=== PATIENT | male | born 1945 | race Caucasian/White ===

== ENCOUNTER 2020-11-02 08:30 | Observation (INO) ==
--- NOTE | 2020-10-28 14:34 | Anesthesiology Consultation ---
Date of Service October 28, 2020 Assessment & Plan (1) Encounter for pre-operative examination: Chart Review Chart Review: Acceptable Risk for Surgery (pending preop Covid testing ) and Patient NOT seen in Pre Admission Testing Pt initially scheduled for surgery 07/20/20- rescheduled to 11/02/20 (presumed secondary to Covid surge) - Check BSG AM DOS At PAT appt on 06/21/20 when seen by Nae LEZAMAC= "Patient advised to continue ASA perioperatively unless otherwise instructed by surgeon/prescriber. Patient made aware that in order for spinal anesthesia, Cilostazol needs to be held 4 days prior to surgery. Patient voiced understanding/will check if okay with prescriber." Per nursing assessment 09[facility]27/2020, [facility] Wears PPE. No known Covid infection in the past 90 days. No known Covid positive contacts or Covid related symptoms. Pt will follow up with surgeon's office re: preop Covid testing= will await results Cardiology office visit 06/24/20: "Did finish cardiac rehab.. Is for left knee replacement on 07/20/2020.. Has history of mildmoderate PAD in both calves.. Gets pain and heaviness in his legs if he walks a few blocks.. Status post CABG- 4V CABG (BECERRA to mid LAD, REUBEN to BECERRA diag 1, REUBEN to end of side OM1, VG to PDA).. Doing very well.. Patient is cleared for proposed surgery.. AFIB- 1 isolated event postop. Not on AC at this time. Continue stepdown on amiodarone. Continue to monitor. PCP office visit: 07/05/20: "Medically stable for left knee arthroplasty." History Surgery Operation Date: 11/02/20 12:05 Proposed Procedures p Left Total Knee Arthroplasty - Jayce Aguilar MD Height/Weight Height: 5 ft 10 in Weight: 113.398 kg Allergies Allergy/AdvReac Type Severity Reaction Status Date / Time No Known Allergies Allergy Verified 09/27/20 08:27 Medications Home Medications Medication Instructions Recorded Confirmed Last Taken Lactobacillus acidophilus 1,000 mmu cells PO QAM 06/09/20 09/27/20 Unknown [Probiotic Acidophilus] amlodipine 5 mg PO QAM 06/09/20 09/27/20 Unknown ascorbic acid (vitamin C) [Vitamin 500 mg PO QAM 06/09/20 09/27/20 Unknown C] aspirin [Aspir-81] 81 mg PO QPM 06/09/20 09/27/20 Unknown atorvastatin 80 mg PO PM 06/09/20 09/27/20 Unknown cholecalciferol (vitamin D3) 125 mcg PO QAM 06/09/20 09/27/20 Unknown [Vitamin D3] cyanocobalamin (vitamin B-12) 1,000 mcg PO QAM 06/09/20 09/27/20 Unknown finasteride 1.25 mg PO QAM 06/09/20 09/27/20 Unknown fluocinolone acetonide oil 5 drp OTB BID 06/09/20 09/27/20 Unknown glucos sul [id number]-C-Mn 1 cap PO QPM 06/09/20 09/27/20 Unknown [Glucosamine Chondroitin] metoprolol succinate 50 - 100 mg PO BID 06/09/20 09/27/20 Unknown multivitamin 1 tab PO QAM 06/09/20 09/27/20 Unknown cilostazol 100 mg PO BID 06/21/20 09/27/20 Unknown Past Medical History Medical History (Updated 10/28/20 @ 15:23 by Jennifer Pearson PA-C) CAD (coronary artery disease) s/p CABG x4 (06/2019) Hyperglycemia Would consider diet controlled DM secondary to Hgb A1C of 6.8 on 10/28/20 preop labs Hyperlipidemia Hypertension Myocardial Infarction 1988 and 1989- follows with current cardiology (Dr. Reyes) Obesity PAD (peripheral artery disease) arterial insufficiency- on Cilostazol, follows with vascular (Dr. Villar/Uri) Past Surgical History Surgical History History of adenoidectomy History of cardiac cath multiple, most recent 2019 (prior to CABG) History of cataract surgery R/L History of colonoscopy multiple History of coronary artery bypass graft CABG x4 (06/2019)- [facility] History of tonsillectomy Social History Smoking Status: Never smoker Do You Dip or Chew Tobacco: No Hx Alcohol Use: Yes Alcohol type: beer alcohol intake frequency: a few times a week Hx Substance Use: No substance use type: does not use Testing Laboratory Results Blood Type A Positive 10/28/20 11:19 Antibody Screen NEGATIVE 10/28/20 11:19 Laboratory Tests 10/28/20 10/28/20 10/28/20 11:19 11:19 11:19 WBC 8.23 Hgb 11.9 L Hct 36.8 L Plt Count 306 PT 9.4 INR 0.9 APTT 23.5 Sodium Potassium Chloride Carbon Dioxide BUN Creatinine Glucose Hemoglobin A1c 6.8 H 10/28/20 11:19 WBC Hgb Hct Plt Count PT INR APTT Sodium 140 Potassium 4.0 Chloride 106 Carbon Dioxide 30 BUN 18 Creatinine 1.30 Glucose 139 H Hemoglobin A1c 10/28/2020 = UA: Trace ketones Electrocardiogram Date: 06/21/20 SR with occasional PVC's at 88bpm. Inferior infarct, age undetermined. (Report forwarded to cardiology) Chest X-Ray Date: 06/21/20 FINDINGS: There are postsurgical changes of a midline sternotomy. There is aortic tortuosity/ectasia. Heart is normal in size. There is no failure. There is no focal pulmonary consolidation. There are no pleural effusions. There is minor left basilar subsegmental atelectasis. IMPRESSION: No active disease in the chest. Echocardiogram Date: 08/25/19 LV Function: normal EF 50 to 55%. Mild LVH. Calcified aortic valve. NITIN is 3.9 cm and mean gradient is 4 mmHg. Grade 1 diastolic dysfunction. Stress Test Date: 04/23/19 Type: nuclear Based upon EKG criteria, this test is negative. Based upon nuclear imaging findings there is lateral wall ischemia, inferior wall infarction, and mild residual ischemia. Subsequent CABGx4 done 06/2019.
--- NOTE | 2020-10-31 21:29 | History & Physical Report ---
Date of Service October 31, 2020 Assessment & Plan (1) Primary osteoarthritis of left knee: Treatment options discussed with patient. He has failed conservative measures. Risks, benefits and alternatives to surgery including but not limited to infection, DVT, pain, stiffness, need for revision surgery, damage to blood vessels, damage to nerves, PE, , were discussed with the patient and they wish to proceed. Plan on left total knee arthroplasty at [facility] on 11/02/[address] Aguilar. Will plan on aspirin 81mg BID x 1 mo post op for DVT prophylaxis. Patient has a baseline normocytic anemia with preop hemoglobin of 11.9. Will need to closely monitor H&H post operatively. Patient has an A1c of 6.8 as well, no previous dx of DM2. Will need to follow up with PCP in regards to his glucose levels. Will plan on outpatient PT post discharge from the hospital. All questions answered. He will follow up post operatively. History of Present Illness Chief Complaint: Left knee pain Primary Care Provider: Ward Sapp 75 year old male with PMHx significant for hx of [place], CAD s/p quadruple bypass, PAD, HTN, high cholesterol who presents with ongoing left knee pain. Pain interfering with his daily activities. He has failed conservative measures including injections and antiinflammatories. He would like to proceed with left knee replacement. Patient denies headaches, sweats, fevers, chills, double vision, blurred vision, cough, sore throat, dysphagia, chest pain, sob, wheezing, n/v/d/c, numbness, tingling, fatigue, urinary symptoms, mood disorders. ROS positive for left knee pain and stiffness. Allergies Allergy/AdvReac Type Severity Reaction Status Date / Time No Known Allergies Allergy Verified 09/27/20 08:27 Home Medications Medication Instructions Recorded Confirmed Type Lactobacillus acidophilus 1,000 mmu cells PO QAM 06/09/20 09/27/20 History [Probiotic Acidophilus] amlodipine 5 mg PO QAM 06/09/20 09/27/20 History ascorbic acid (vitamin C) [Vitamin 500 mg PO QAM 06/09/20 09/27/20 History C] aspirin [Aspir-81] 81 mg PO QPM 06/09/20 09/27/20 History atorvastatin 80 mg PO PM 06/09/20 09/27/20 History cholecalciferol (vitamin D3) 125 mcg PO QAM 06/09/20 09/27/20 History [Vitamin D3] cyanocobalamin (vitamin B-12) 1,000 mcg PO QAM 06/09/20 09/27/20 History finasteride 1.25 mg PO QAM 06/09/20 09/27/20 History fluocinolone acetonide oil 5 drp OTB BID 06/09/20 09/27/20 History glucos sul [id number]-tzqip-C-Mn 1 cap PO QPM 06/09/20 09/27/20 History [Glucosamine Chondroitin] metoprolol succinate 50 - 100 mg PO BID 06/09/20 09/27/20 History multivitamin 1 tab PO QAM 06/09/20 09/27/20 History cilostazol 100 mg PO BID 06/21/20 09/27/20 History Past Med/Surg History Medical History (Updated 10/31/20 @ 21:25 by Albert Herrera) CAD (coronary artery disease) s/p CABG x4 (06/2019) Hyperglycemia Would consider diet controlled DM secondary to Hgb A1C of 6.8 on 10/28/20 preop labs Hyperlipidemia Hypertension Myocardial Infarction 1988 and 1989- follows with current cardiology (Dr. Reyes) Obesity PAD (peripheral artery disease) arterial insufficiency- on Cilostazol, follows with vascular (Dr. Villar/Uri) Surgical History History of adenoidectomy History of cardiac cath multiple, most recent 2018 (prior to CABG) History of cataract surgery R/L History of colonoscopy multiple History of coronary artery bypass graft CABG x4 (06/2019)- [facility] History of tonsillectomy Social History Smoking Status: Never smoker Second Hand Exposure: No; Hx Alcohol Use: Yes Alcohol type: beer Hx Substance Use: No Preferred Language: Slovak Communication Ability: Effective Mail Machine Operator Required: No Beliefs That Will Affect Care: None Current Living Situation: Spouse Feels Safe at Home: Yes Assistive Devices: None Review of Systems All systems reviewed & are unremarkable except as noted in HPI & below Physical Exam Constitutional: well developed and well nourished; no acute distress Eyes: PERRL, conjunctivae normal, anicteric sclerae ENMT: external ear and nose normal, oropharynx normal Neck: trachea midline, no thyromegaly Respiratory: normal respiratory effort, lungs clear to auscultation Cardiovascular: RRR, no murmur, no edema Musculoskeletal: Left Knee: ROM 0-120 with crepitation. Varus alignment. Tenderness medial joint line. Stable to valgus and varus stress. Positive Chayo's/ Skin: no rashes, warm and dry Neurologic: patellar DTR's 2+ bilat, sensation intact Psychiatric: A+Ox3, euthymic affect Results & Data ([facility]) Laboratory Results Lab Results 10/28/20 Range/Units 11:19 Blood Type A Positive Antibody Screen NEGATIVE Diagnostic Findings Left knee: Significant tricompartmental arthritis with periarticular osteophyte formation in all 3 compartments. Lateral subluxation of tibia on femur. Bone on bone medial compartment.
[~2020-11-02 08:30] MED LIST: ACETAMINOPHEN 500 MG TAB PO SCH; BUPIVACAINE 0.25% 30 ML VIAL ONE; BUPIVACAINE 0.5 % 5 MG/1 ML PF 10ML VIAL ONE; CeleBREX 200 MG CAP PO SCH; DEXAMETHASONE SOD INJ 4 MG/ML VIAL ONE; EPINEPHrine INJ 1 MG/ML AMP ONE; FAMOTIDINE 20 MG TAB PO SCH; GABAPENTIN 300 MG CAP PO SCH; LIDOCAINE HCL 2% 2 ML VIAL/AMP(20MG/ML) INFIL ONE; LR 15ML/HR IV SCH; METOCLOPRAMIDE HCL 10 MG TABLET PO SCH; MIDAZOLAM HCL 1 MG/ML 2ML VIAL ONE; ONDANSETRON INJ 2 MG/ML 2 ML VIAL ONE; PROPOFOL IV EMULSION 10 MG/ML 20 ML VIAL IV ONE; ROPIVACAINE 0.5% HCL/PF 150 MG, BUPIVACAINE 0.75% MPF 20 ML, EPINEPHrine 30MG/30ML (OR ... INSTIL SCH; ceFAZolin 2000MG 2,000 MG/15 ML SYR IV SCH; dexAMETHasone 4 MG TAB PO SCH
--- NOTE | 2020-11-02 08:57 | History & Physical Bridge Note ---
Date of Service November 02, 2020 History & Physical Bridge Note I have examined the patient, reviewed the History & Physical and in the interval since the performance of the History & Physical I have noted the following changes of clinical significance: no changes noted
[2020-11-02] MEDS ORDERED: BACITRACIN INJ 50,000 UNIT VIAL ONE (09:23)
[2020-11-02] MEDS ORDERED: ORTHO JOINT ANESTHETIC ONE (09:23)
[2020-11-02] MEDS ORDERED: ATROPINE SULFATE 0.1 MG/ML 10ML SYR IV PRN (10:12)
[2020-11-02] MEDS ORDERED: fentaNYL citrate 100 MCG/2 ML VIAL IV PRN (10:12)
[2020-11-02] MEDS ORDERED: ePHEDrine sulfate 50 MG/ML AMP IV PRN (10:12)
[2020-11-02] MEDS ORDERED: ONDANSETRON INJ 2 MG/ML 2 ML VIAL IV PRN ×2 (10:12→14:13)
[2020-11-02] MEDS ORDERED: PHENYLEPHRINE 100MCG/ML 5ML SYR ONE (10:31)
[2020-11-02] MEDS ORDERED: KETAMINE 50 MG/5 ML SYRINGE ONE (10:34)
[2020-11-02] MEDS ORDERED: GLYCOPYRROLATE 0.2 MG/ML VIAL ONE (10:34)
[2020-11-02] MEDS ORDERED: PROPOFOL IV EMULSION 10 MG/ML 20 ML VIAL IV ONE ×2 (11:23→11:49)
--- NOTE | 2020-11-02 12:26 | Operative Report ---
Post Operative Report Pre & Post Diagnosis Operation Date: 11/02/20 10:40 Pre-Op Diagnosis: Osteoarthritis Left Knee Post-Op Diagnosis: Osteoarthritis Left Knee, synovial cyst lateral knee, synovitis, tricompartmental osteoarthritis chronic ACL tear I identified the patient and participated in the time-out.: Yes Procedure Operation Date: 11/02/20 10:40 Actual Procedures p Left Total Knee Arthroplasty, excision of Synovial Cyst, Partial Synovectomy, superficial wound VAC (Left) - Jayce Aguilar MD Surgeon Jayce Aguilar MD Trawl Net Maker Arnulfo SIMONS Estimated Blood Loss 5 Findings Consistent with Post-Op Diagnosis Specimens Bone cuts Drains 2 Hemovac Anesthesia Type MAC Spinal Regional Complications none Disposition Accompanied Patient To Recovery: No Disposition: Recovery Room Indications 75-year-old male with chronic bilateral knee pain failed conservative management. Left knee hurts more than his right. Radiographs demonstrate tricompartmental osteoarthritis with marked subluxation the femur medially on the tibia with bone loss medial compartment Description of Procedure Patient taken to the operating room the size under spinal MAC regional anesthesia. Patient was placed supine on the operating table. A pneumatic tourniquet was placed about the left upper thigh. The left lower extremity was prepped and draped in sterile fashion. Knee exam demonstrated varus knee large effusion positive Dang exam mild pseudolaxity only lateral collateral ligament laxity 0 through 130 degrees range of motion. History of peripheral vascular disease but good capillary refill and weak but palpable dorsalis pedis pulse. The leg was elevated exsanguinated with an Esmarch bandage and pneumatic tourniquet was raised to 325 millimeters of mercury. Skin incised sharply in longitudinal fashion. Subcutaneous flaps elevated. Incision was made through the medial retinaculum extending up in the mid third of the quadriceps tendon and down to the medial tibial tubercle. Intra-articular findings demonstrated severe tricompartmental osteoarthritis grade 4 all compartments. There was no tch stenosis chronic ACL tear chronic medial meniscus tear. There was a large synovial cyst overlying the popliteus tendon lateral collateral ligament area. There was chronic synovitis throughout the knee joint.. The Egodeus triathlon total knee arthroplasty system was used. To expose the knee the infrapatellar fat pad was resected. The meniscal remnants and cruciate ligaments were resected. The anterior fat pad over the femur in the area of the anterior flange of the femoral component was resected. Lateral synovial bands released. The large synovial cyst over the popliteus tendon lateral, ligament was carefully dissected out with Metzenbaum scissors and resected and any bleeders were cauterized. Partial synovectomy was performed the suprapatellar pouch and areas where there was synovitis that was obscuring our view. The femur was exposed. An intramedullary drill hole was made into the canal. A guide bhanu was placed. Distal femoral cutting guide was adjusted to resect a 5 degree valgus cut with 8 millimeters distal femur resected. The knee was extended and a subperiosteal peel lateral release was performed around the patella. Patella width was measured and width was reproduced using a freehand cut technique and a 39 x 11 symmetrical patella component. The 3 drill holes were made and the excess lateral facet was beveled off to prevent any impingement. Attention was taken back to the femur which was exposed with retractors and the femoral sizing guide was pinned in position. The drill holes were placed in 3 of external rotation to match epicondylar axis. Femur sized for a 7 component. The 4-in-1 cutting block was placed and then the anterior posterior and chamfer cuts are made. The tibia was then subluxed. The external tibial cutting guide was just to make a perpendicular cut to the long axis of the tibia below the most deficient bone loss side. A lamina basketballs and footballs reverser was used and the flexion extension gaps were balanced. This required medial posterior medial releases and pie crusting MCL. All posterior osteophytes removed. All meniscal remnants were resected. The tibia exposed and the trial tibial component size 6 was externally rotated in line with the tibial tubercle and pinned in position. The punch for stem was used. The notch cutting device was centered appropriately and the femoral notch cut was made. The femoral trial was inserted. Trial tibial inserts were placed and size 13 gave balanced ligaments through flexion and extension. Patella tracking was assessed. The patella tracked centrally. The trial components were then removed and the orthomix anesthetic cocktail was injected per protocol. The knee was then copiously irrigated with pulsatile lavage antibiotic solution. Final components were then cemented with Simplex cement. Final components were size 7 left posterior stabilized Joelle triathlon femoral component with pegs, 6 primary tibial baseplate, 6 x 13 mm posterior stabilized polyethylene insert, S 39 x 11 mm patella. After the cement cured the Betadine soak was used per protocol. Then further pulsatile lavage irrigation performed and 2 Hemovac drains were brought out laterally. The quadriceps tendon and medial retinaculum were closed with figure of 8 #1 Vicryl sutures. The knee was taken through full range of motion and the repair was secure. The subcutaneous tissues were closed with 2-0 Vicryl sutures. Skin was closed with mehran. Mustapha and Acticoat superficial wound VAC was applied. Patient procedure well. Arnulfo SIMONS was my physician financial sales assistant who assisted in patient positioning prepping and draping,leg positioning ,soft tissue retraction and instrument management and participated in the closing and application of superficial wound VAC and will participate in postoperative care of the patient. The patient tolerated the procedure well. I attest to the content of the Intraoperative Record and any orders documented therein. Any exceptions are noted below.
--- NOTE | 2020-11-02 13:24 | XRay Report ---
XR knee LT 1 or 2V routine CLINICAL HISTORY: Surgical Post Op COMPARISON: None. DISCUSSION: There are postsurgical changes of a total left knee arthroplasty and patellar resurfacing . There are overlying skin mehran and surgical drains. The femoral tibial components appear well sea olya. There is gas within the soft tissues consistent with recent surgery. IMPRESSION: Postsurgical changes of a total left knee arthroplasty. ACT 112: Negative or not required by law. Electronically signed by: Danny Brown M.D. 11/02/2020 1:23 PM
[2020-11-02] MEDS ORDERED: TAMSULOSIN HCL 0.4 MG CAP PO PRN (14:13)
[2020-11-02] MEDS ORDERED: NALOXONE HCL 0.4 MG/1 ML VIAL/CARP IV PRN (14:13)
[2020-11-02] MEDS ORDERED: oxyCODONE HCL IR 5 MG TAB (IMMEDIATE RELEASE) PO PRN (14:13)
[2020-11-02] MEDS ORDERED: bisacodyL 10 MG SUPP PR PRN (14:13)
[2020-11-02] MEDS ORDERED: FLUOCINOLONE ACETONIDE OIL OTB SCH (14:13)
[2020-11-02] MEDS ORDERED: METOCLOPRAMIDE HCL INJ 5 MG/ML 2 ML VIAL IV PRN (14:13)
[2020-11-02] MEDS ORDERED: HYDROmorphone INJ 0.5 MG/0.5 ML SYR IV PRN (14:13)
[2020-11-02] MEDS ORDERED: MAGNESIUM HYDROXIDE SUSP 30 ML UDC PO PRN (14:13)
--- NOTE | 2020-11-02 14:58 | Hospitalist Consultation ---
Date of Consultation November 02, 2020 Assessment & Plan (1) Primary osteoarthritis of left knee: Patient underwent total knee arthroplasty on 11/02/[address] Osborne (2) CAD (coronary artery disease): Patient has history of CABG in 2019 with previous depressed ejection fraction of 45 to 50% considering his chronic systolic heart failure. Patient did receive cardiac clearance for surgery remaining on his medications. (3) PAD (peripheral artery disease): Patient is known to have bilateral lower extremity claudication and a previous note by cardiology. He was on Pletal aspirin atorvastatin as risk ellie fying agents. The Pletal was held 4 days preoperatively will resume Pletal postoperatively once hemostasis is achieved (4) Obesity: Patient suffers from morbid obesity with a BMI of 49.4 likely contributing to his osteoarthritis and also cardiovascular risk (5) Hyperlipidemia: Remains on high-dose atorvastatin 80 mg a day to affect both his coronary disease and peripheral artery disease. (6) Hyperglycemia: Patient does not have a history of diabetes however it is preoperative A1c was 6.8 we will follow his glucoses cautiously in the hospital and employ sliding scale insulin for glucoses above 200 (7) DVT prophylaxis: Discussing with Ortho physicians showroom sales assistant decision to have aspirin twice daily plus Pletal twice daily for DVT prevention History of Present Illness Attending Physician: Jayce Aguilar MD History of Present Illness Patient is a 75-year-old male underwent left total knee arthroplasty by Dr. Menendez on 11/02/2020. Patient has a history of coronary artery disease status post CABG in 2019 and peripheral artery disease typically on dual antiplatelet therapy agents for lower extremity claudication. Patient was seen by his bike assembler and family physician and cleared for surgery. Directions were to hold his Pletal 4 days preoperatively but continue on his aspirin. Patient remains on metoprolol succinate 100 the morning and 50 mg at night for cardiovascular risk reduction as well as high-dose atorvastatin 80 mg. Allergies Allergy/AdvReac Type Severity Reaction Status Date / Time No Known Allergies Allergy Verified 11/02/20 09:01 Home Medications Medication Instructions Recorded Confirmed Type Lactobacillus acidophilus 1,000 mmu cells PO QAM 06/09/20 11/02/20 History [Probiotic Acidophilus] amlodipine 5 mg PO QAM 06/09/20 11/02/20 History ascorbic acid (vitamin C) [Vitamin 500 mg PO QAM 06/09/20 11/02/20 History C] aspirin [Aspir-81] 81 mg PO QPM 06/09/20 11/02/20 History atorvastatin 80 mg PO PM 06/09/20 11/02/20 History cholecalciferol (vitamin D3) 125 mcg PO QAM 06/09/20 11/02/20 History [Vitamin D3] cyanocobalamin (vitamin B-12) 1,000 mcg PO QAM 06/09/20 09/27/20 History finasteride 1.25 mg PO QAM 06/09/20 11/02/20 History fluocinolone acetonide oil 5 drp OTB 2XWK 06/09/20 11/02/20 History glucos sul 5NYg-csp-ztiff-C-Mn 1 cap PO QPM 06/09/20 11/02/20 History [Glucosamine Chondroitin] metoprolol succinate 50 - 100 mg PO BID 06/09/20 11/02/20 History multivitamin 1 tab PO QAM 06/09/20 11/02/20 History cilostazol 100 mg PO BID 06/21/20 11/02/20 History Patient History Medical History (Updated 11/02/20 @ 14:58 by Perez Michel MD) CAD (coronary artery disease) s/p CABG x4 (06/2019) Hyperglycemia Would consider diet controlled DM secondary to Hgb A1C of 6.8 on 10/28/20 preop labs Hyperlipidemia Hypertension Myocardial Infarction 1988 and 1989- follows with current cardiology (Dr. Reyes) Obesity PAD (peripheral artery disease) arterial insufficiency- on Cilostazol, follows with vascular (Dr. Villar/Uri) Surgical History History of adenoidectomy History of cardiac cath multiple, most recent 2019 (prior to CABG) History of cataract surgery R/L History of colonoscopy multiple History of coronary artery bypass graft CABG x4 (06/2019)- [facility] History of tonsillectomy Social History Smoking Status: Never smoker Second Hand Exposure: No; Do You Dip or Chew Tobacco: No; Tobacco Cessation Education Requested by Patient: No Hx Alcohol Use: Yes Alcohol type: beer Hx Substance Use: No Preferred Language: Icelandic Communication Ability: Effective Corporate Associate Required: No Beliefs That Will Affect Care: None Current Living Situation: Spouse Other Information That Helps Us Care for You: No Feels Safe at Home: Yes Safety Concerns: Feels Safe At This Time Assistive Devices: Walker Review of Systems Review of Systems: Mild distress and fatigue no headache, blurry or double vision no speech or swallowing issues no chest pain, pressure or palpitations no shortness of breath, cough or wheezes no abdominal pain, nausea or vomiting, diarrhea or constipation no dysuria, hematuria or frequency bilateral knee pain left greater than right no back pain, CVA tenderness or radicular pain no bruising, bleeding or rashes no focal signs of weakness or numbness or altered sensation no complaints of anxiety or depression.. Physical Exam Physical Exam: The patient appeared well nourished and normally developed. Vital signs as documented. Head exam is normocephalic atraumatic no scleral icterus Neck is without JVD, thyromegaly, or carotid bruits. Lungs are clear to auscultation, no focal loss of breath sounds Cardiac exam, Rhythm is regular.. No murmurs, rubs or gallops. Abdominal exam reveals normal bowel sounds, soft non tender, no masses Extremities are nonedematous and both pedal pulses are present pt has good pain control at this time Neurologic exam is alert and oriented, no focal loss of strength or sensation Psychologically is without concerns for anxiety or depression Results & Data Results & Data ([facility]) Vital Signs (Past 12 Hours) Vital Signs Temp Pulse Pulse Pulse Resp BP Pulse Ox 11/02/20 14:33 97.9 F 76 16 119/71 95 11/02/20 14:00 97.7 F 77 18 126/75 98 11/02/20 13:40 97.5 F L 77 15 124/73 97 11/02/20 13:30 97.2 F L 77 15 117/76 97 11/02/20 13:20 81 16 122/67 96 11/02/20 13:10 76 15 117/73 96 11/02/20 13:01 97.3 F L 81 13 112/80 95 11/02/20 09:50 98.2 F 77 20 126/83 96 11/02/20 09:15 98.2 F 85 20 126/84 94 PG Care Time/CCT Total # of Minutes Spent Total Time Spent with Patient: Total time spent is greater than 50% in coordination of care (as documented) at patient's floor/unit and/or counseling patient: Coding Level of Care Code 02055 Inpt Consult Level 3 Diagnoses Primary osteoarthritis of left knee M17.12 CAD (coronary artery disease) I25.10 PAD (peripheral artery disease) I73.9 Obesity E66.9 Hyperlipidemia E78.5 Hyperglycemia R73.9 DVT prophylaxis Z29.9
[2020-11-02] MEDS ORDERED: GLUCOSE 10 TABS/TUBE PO PRN (15:00)
[2020-11-02] MEDS ORDERED: CARBOHYDRATES FOR HYPOGLYCEMIA PO PRN (15:00)
[2020-11-02] MEDS ORDERED: GLUCOSE 40% GEL 15 GM TUBE PO PRN (15:00)
[2020-11-02] MEDS ORDERED: GLUCAGON FOR INJ 1 MG VIAL SQ PRN (15:00)
[2020-11-02] MEDS ORDERED: DEXTROSE 50% 50 ML SYRINGE IV PRN (15:00)
--- NOTE | 2020-11-02 15:04 | Anesthesiology Progress Note ---
Date of Service November 02, 2020 Anesthesia Post Procedure Vital Signs Vital Signs: Temp Pulse Pulse Pulse Resp BP Pulse Ox 11/02/20 14:33 36.6 C 76 16 119/71 95 11/02/20 14:00 36.5 C 77 18 126/75 98 11/02/20 13:40 36.4 C L 77 15 124/73 97 11/02/20 13:30 36.2 C L 77 15 117/76 97 11/02/20 13:20 81 16 122/67 96 11/02/20 13:10 76 15 117/73 96 11/02/20 13:01 36.3 C L 81 13 112/80 95 11/02/20 09:50 36.8 C 77 20 126/83 96 11/02/20 09:15 36.8 C 85 20 126/84 94 Transfer of Care Handoff Completed per policy Notes Mental Status: alert / awake / arousable Patient Amnestic to Procedure: Yes Nausea / Vomiting: adequately controlled Pain: adequately controlled Airway Patency, RR, SpO2: stable & adequate BP & HR: stable & adequate Hydration State: stable & adequate Neuraxial Anesthesia: was administered and sensory block is resolving Anesthetic Complications: no major complications apparent
[2020-11-02] MEDS: SODIUM CHLORIDE 0.9% 1000ML 1,000 ML IV SCH (15:35)
[2020-11-02] MEDS: ACETAMINOPHEN 500 MG TAB PO SCH ×2 (15:35→22:20)
[2020-11-02] MEDS: FERROUS GLUCONATE 324 MG TAB PO SCH (17:05)
[2020-11-02] MEDS: INSULIN ASPART 100 UNITS/ML 3 ML PEN SC SCH ×2 (17:23→21:09)
[2020-11-02] MEDS: METOPROLOL SUCC 50MG EXT REL TAB PO SCH (20:28)
[2020-11-02] MEDS: ASPIRIN 81 MG ECTAB PO SCH (20:28)
[2020-11-02] MEDS: ceFAZolin 2000MG 2,000 MG/15 ML SYR IV SCH (20:28)
[2020-11-02] MEDS: SENNA 8.6 MG TAB PO SCH (20:28)
[2020-11-02] MEDS: ATORVASTATIN 40 MG TAB PO SCH (20:29)
[2020-11-02] MEDS: DOCUSATE SODIUM 100 MG CAP PO SCH (20:29)
[2020-11-02] MEDS ORDERED: ASPIRIN 81 MG ECTAB PO SCH (21:00)
[2020-11-02] MEDS ORDERED: METOPROLOL SUCC 50MG EXT REL TAB PO SCH ×2 (21:00)
[2020-11-03] MEDS: SODIUM CHLORIDE 0.9% 1000ML 1,000 ML IV SCH (02:13)
[2020-11-03] MEDS: ceFAZolin 2000MG 2,000 MG/15 ML SYR IV SCH (04:06)
[2020-11-03] MEDS: ACETAMINOPHEN 500 MG TAB PO SCH ×3 (06:10→22:06)
[2020-11-03 07:35] LABS: Hematocrit (blood only) 34.9 % (42-52); Hemoglobin 11.3 g/dL (14.0-18.0); Mean Corpuscular Hgb Conc 32.4 g/dL (32-36); Mean Corpuscular Volume 92.6 fL (80-100); Mean Platelet Volume 8.5 fL (7.4-10.4); Platelet Count 315 K/uL (130-400); RDW Coefficient of Variation 14.3 % (11.5-14.5); RDW Standard Deviation 48.2 fL (36.4-46.3); Red Blood Count 3.77 M/uL (4.7-6.1); White Blood Count 14.53 K/uL (4.8-10.8)
[2020-11-03 08:07] LABS: BUN Creatinine Ratio 19.2 (10-20); Calcium 8.8 mg/dl (8.5-10.1); Est GFR (African American) 61.2; Est GFR (Non-African American) 52.8; Potassium 4.4 mmol/L (3.5-5.1)
[2020-11-03] MEDS: INSULIN ASPART 100 UNITS/ML 3 ML PEN SC SCH ×4 (08:17→20:45)
--- NOTE | 2020-11-03 08:45 | Anesthesiology Progress Note ---
Date of Service November 03, 2020 Anesthesia Post Procedure Vital Signs Vital Signs: Temp Pulse Pulse Pulse Resp BP BP 11/03/20 07:30 36.5 C 71 16 90/63 L 11/03/20 02:01 36.4 C L 69 16 116/75 11/02/20 22:23 36.4 C L 72 18 112/66 11/02/20 20:00 70 122/81 11/02/20 19:12 36.4 C L 68 16 111/69 11/02/20 17:04 36.6 C 76 16 108/70 11/02/20 16:07 36.4 C L 77 16 125/80 11/02/20 15:37 11/02/20 15:23 36.3 C L 78 16 113/67 11/02/20 14:33 36.6 C 76 16 119/71 11/02/20 14:00 36.5 C 77 18 126/75 11/02/20 13:40 36.4 C L 77 15 124/73 11/02/20 13:30 36.2 C L 77 15 117/76 11/02/20 13:20 81 16 122/67 11/02/20 13:10 76 15 117/73 11/02/20 13:01 36.3 C L 81 13 112/80 11/02/20 09:50 36.8 C 77 20 126/83 11/02/20 09:15 36.8 C 85 20 126/84 Pulse Ox 11/03/20 07:30 93 11/03/20 02:01 91 11/02/20 22:23 94 11/02/20 20:00 11/02/20 19:12 92 11/02/20 17:04 90 11/02/20 16:07 91 11/02/20 15:37 93 11/02/20 15:23 94 11/02/20 14:33 95 11/02/20 14:00 98 11/02/20 13:40 97 11/02/20 13:30 97 11/02/20 13:20 96 11/02/20 13:10 96 11/02/20 13:01 95 11/02/20 09:50 96 11/02/20 09:15 94 Notes Mental Status: alert / awake / arousable and participated in evaluation Patient Amnestic to Procedure: Yes Nausea / Vomiting: adequately controlled Pain: adequately controlled Airway Patency, RR, SpO2: stable & adequate BP & HR: stable & adequate Hydration State: stable & adequate Neuraxial Anesthesia: was administered and sensory block resolved Anesthetic Complications: no major complications apparent
--- NOTE | 2020-11-03 08:48 | Hospitalist Progress Note ---
Date of Service November 03, 2020 Assessment & Plan (1) Primary osteoarthritis of left knee: * POD#1 s/p Left Total Knee Arthroplasty, Incision of Synovial Cyst, Partial Synovectomy with Dr. Aguilar. EBL 5cc. * PT/OT/pain management/bowel regimen/DVT prophylaxis per primary service * Pre-op h/h 11.9/36.8 * H/h 11.3/34.9 -- drop from surgery but unclear why underlying anemia. MCV wnl. * --> Will add iron labs/B12/folate if patient staying today. --> per patient, he is unaware of chronic anemia and has never been on iron supplementation. He does take B12 daily but do not have access to latest lab levels. * --> He reports colonoscopy 2 years ago which was clear and he is not to have repeat for 8 more years * WBC elevated but did get 8mg PO dexamethasone operative period * BP low this morning but was asymptomatic -- held AM amlodipine and BP stable 114/67 * Labs in AM (2) CAD (coronary artery disease): * Patient has history of CABG in 2019 at [facility]. Also with HTN, also well controlled * Symptoms of cp/sob resolved since that time * ECHO did show EF 45-50% but did get cardic clearance for current surgery * He states since that time BPs have always been well controlled * Continue metoprolol 50+100mg as ordered, ASA 81mg (increased to BID for DVT proph), Lipitor 80mg. Not on TRACY/ARB * Holding amlodipine this AM for low BP, improved currently -- expect to resume in AM (3) PAD (peripheral artery disease): * Patient is known to have bilateral lower extremity claudication and a previous note by cardiology. * He was on Pletal aspirin atorvastatin as risk modifying agents. * The Pletal was held 4 days preoperatively and resumed BID for DVT proph along with ASA 81mg BID (4) Hyperlipidemia: * continued atorvastatin 80 mg daily (5) Obesity: * Patient suffers from morbid obesity with a BMI of 49.4 likely contributing to his osteoarthritis and also cardiovascular risk * Weight loss/diet exercise encouraged (6) Hyperglycemia: * Hx diabetes but not on medications currently * Pre-op A1c 6.8 * ISS while inpatient as received dexamethasone operatively * BSGs acceptable (7) CKD (chronic kidney disease) stage 3, GFR 30-59 ml/min: * Unclear baseline as PCP not [facility], however since Jun 2020 Cr 1.37, pre-op 1.3 and currently 1.32 assuming around baseline * Not on TRACY/ARB * Continued vitamin D supplementation * Would recommend follow up with PCP * BMP in AM (8) BPH (benign prostatic hyperplasia): * Finasteride 1.25mg ASS[employer]MENT DESK [employer]OR -- will attempt to order but appears non- formulary * If unable to get will ask pt to have brought in * Low UO but patient now drinking/eating more --> continue to monitor * No vasquez (9) DVT prophylaxis: * ASA BID, Pletal BID Thank you for allowing hospitalist service to participate in the care of Mr Whittington. Hospitalist service will follow along. Admission and Anticipated Discharge Date Admission Date: November 02, 2020 Supervising Physician Co-Signing Physician Notes KRISTYN Supervision Note: I did not personally see or examine the patient today, but I verified all todd points of KRISTYN Durant's assessment and plan with the following exceptions/additions: None Subjective Patient evaluated this morning. Doing great. Plans on staying overnight to monitor drain output and to have OPPT at d/c. Pain well controlled. No chest pain or shortness of breath -- he states all these symptoms resolved when he had his CABG Jun 2019 at [facility]. Eating/drinking without issue and passing gas. 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 No fever, chills, chest pain, shortness of breath, abdominal pain, n/v. Review of Systems Review of Systems: All systems reviewed & are unremarkable except as noted in HPI & below Physical Exam Constitutional: WD/WN, vitals as above well groomed, cooperative and comfortable; no acute distress Eyes: + anicteric sclerae and PERRL ENMT: Ears: no hearing impairment Neck: normal visual inspection and trachea midline Respiratory: normal respiratory effort, lungs clear to auscultation Cardiovascular: RRR, no murmur, no edema (prior sternotomy scar noted) Gastrointestinal (Abdomen): normal bowel sounds, soft, nontender, no hepatosplenomegaly Musculoskeletal: left knee with tracy wrap, dressing c/d/i PRevena with green light, functioning Hemovac with ~100cc bloody output NVI DP, PT pulses palpable and equal bilaterally strength 5/5 with plantar and dorsiflexion calves nontender Skin: cool, dry Neurologic: PERRL, EOMI, accommodation nl, no face palsy, no dysarthria Psychiatric: A+Ox3, euthymic affect Genitourinary: NO VASQUEZ Lymphatic: no cervical or axillary lymphadenopathy Results & Data Results & Data ([facility]) Vital Signs (Past 12 Hours) Vital Signs Temp Pulse Resp BP Pulse Ox 11/03/20 07:30 36.5 C 71 16 90/63 L 93 11/03/20 02:01 36.4 C L 69 16 116/75 91 11/02/20 22:23 36.4 C L 72 18 112/66 94 Laboratory Results 11/03/20 11/03/20 11/03/20 Range/Units 07:54 06:44 06:44 WBC 14.53 H (4.8-10.8) K/uL RBC 3.77 L (4.7-6.1) M/uL Hgb 11.3 L (14.0-18.0) g/dL Hct 34.9 L (42-52) % MCV 92.6 (80-100) fL MCH 30.0 (25-34) pg MCHC 32.4 (32-36) g/dL RDW Std Deviation 48.2 H (36.4-46.3) fL RDW Coeff of Alexi 14.3 (11.5-14.5) % Plt Count 315 (130-400) K/uL MPV 8.5 (7.4-10.4) fL Sodium 140 (136-145) mmol/L Potassium 4.4 (3.5-5.1) mmol/L Chloride 109 H (98-107) mmol/L Carbon Dioxide 25 (21-32) mmol/L Anion Gap 6.0 (3-11) BUN 25 H (7-18) mg/dl Creatinine 1.32 (0.6-1.4) mg/dl Est Cr Clr Drug Dosing 65.0 ml/min Est GFR ( Amer) 61.2 Est GFR (Non-Af Amer) 52.8 BUN/Creatinine Ratio 19.2 (10-20) Glucose 151 H (70-99) mg/dl POC Glucose 148 H (70-99) mg/dl Calcium 8.8 (8.5-10.1) mg/dl 11/02/20 11/02/20 11/02/20 Range/Units 20:46 17:21 08:54 WBC (4.8-10.8) K/uL RBC (4.7-6.1) M/uL Hgb (14.0-18.0) g/dL Hct (42-52) % MCV (80-100) fL MCH (25-34) pg MCHC (32-36) g/dL RDW Std Deviation (36.4-46.3) fL RDW Coeff of Alexi (11.5-14.5) % Plt Count (130-400) K/uL MPV (7.4-10.4) fL Sodium (136-145) mmol/L Potassium (3.5-5.1) mmol/L Chloride (98-107) mmol/L Carbon Dioxide (21-32) mmol/L Anion Gap (3-11) BUN (7-18) mg/dl Creatinine (0.6-1.4) mg/dl Est Cr Clr Drug Dosing ml/min Est GFR ( Amer) Est GFR (Non-Af Amer) BUN/Creatinine Ratio (10-20) Glucose (70-99) mg/dl POC Glucose 168 H 207 H 108 H (70-99) mg/dl Calcium (8.5-10.1) mg/dl PG Care Time/CCT Total # of Minutes Spent Total Time Spent with Patient: Total time spent is greater than 50% in coordination of care (as documented) at patient's floor/unit and/or counseling patient: Coding Level of Care Code 17836 Subseq Obs Care Lvl 3 Diagnoses Primary osteoarthritis of left knee M17.12 CAD (coronary artery disease) I25.10 PAD (peripheral artery disease) I73.9 Hyperlipidemia E78.5 Obesity E66.9 Hyperglycemia R73.9 CKD (chronic kidney disease) stage 3, GFR 30-59 ml/min N18.30 BPH (benign prostatic hyperplasia) N40.0 DVT prophylaxis Z29.9
[2020-11-03] MEDS ORDERED: NON-FORMULARY MEDICATION (Finasteride 1 mg Tablet) PO SCH (09:00)
[2020-11-03] MEDS ORDERED: amLODIPine BESYLATE 5 MG TAB PO SCH (09:00)
[2020-11-03] MEDS ORDERED: MULTIVITAMIN TAB PO SCH (09:00)
[2020-11-03] MEDS: cilostazoL 100 MG TAB PO SCH ×2 (09:43→22:05)
[2020-11-03] MEDS: ASCORBIC ACID 500 MG TAB PO SCH (09:43)
[2020-11-03] MEDS: CYANOCOBALAMIN 500 MCG TABLET (VITAMIN B-12) PO SCH (09:43)
[2020-11-03] MEDS: ASPIRIN 81 MG ECTAB PO SCH ×2 (09:43→22:02)
[2020-11-03] MEDS: ADVANCED PROBIOTIC 1250 MG CAPSULE PO SCH (09:43)
[2020-11-03] MEDS: DOCUSATE SODIUM 100 MG CAP PO SCH ×2 (09:43→22:01)
[2020-11-03] MEDS: MULTIVITAMIN TAB PO SCH (09:43)
[2020-11-03] MEDS: FERROUS GLUCONATE 324 MG TAB PO SCH ×2 (09:43→17:55)
--- NOTE | 2020-11-03 09:43 | Orthopedic Progress Note ---
Date of Service November 03, 2020 Assessment & Plan (1) Primary osteoarthritis of left knee: Postop day 1 status post left total knee arthroplasty. PT/OT protocols. Weightbearing as tolerated. DVT prophylaxis-aspirin p.o. twice daily, Pletal p.o. twice daily, SCDs, CASIMIRO lion Pain management as written. DC planning-plan for outpatient PT upon discharge. Admission and Anticipated Discharge Date Admission Date: November 02, 2020 Supervising Physician Co-Signing Physician Notes Patient seen and examined. He is doing extremely well. He has been ambulating several times in the hallway already. Pain is well controlled. Encouraged knee range of motion and ambulation. Plan upon discharge is home with outpatient physical therapy. Subjective Postop day 1 Patient sitting up at the bedside eating his breakfast. Pain control is adequate today. He denies shortness of breath, chest pain, lightheadedness. Physical Exam Physical Exam: Dressings are clean, dry, and intact. Calves are soft nontender. Neurovascular is intact. Toes are mobile. He has good dorsiflexion and plantarflexion of the left foot. Hemovac drainage was 200 mL from the previous shift. Results & Data ([facility]) Vital Signs (Past 12 Hours) Vital Signs Temp Pulse Resp BP Pulse Ox 11/03/20 07:30 36.5 C 71 16 90/63 L 93 11/03/20 02:01 36.4 C L 69 16 116/75 91 11/02/20 22:23 36.4 C L 72 18 112/66 94 Laboratory Results Laboratory Results WBC 14.53 K/uL (4.8-10.8) H 11/03/20 06:44 RBC 3.77 M/uL (4.7-6.1) L 11/03/20 06:44 Hgb 11.3 g/dL (14.0-18.0) L 11/03/20 06:44 Hct 34.9 % (42-52) L 11/03/20 06:44 MCV 92.6 fL (80-100) 11/03/20 06:44 MCH 30.0 pg (25-34) 11/03/20 06:44 MCHC 32.4 g/dL (32-36) 11/03/20 06:44 RDW Std Deviation 48.2 fL (36.4-46.3) H 11/03/20 06:44 RDW Coeff of Alexi 14.3 % (11.5-14.5) 11/03/20 06:44 Plt Count 315 K/uL (130-400) 11/03/20 06:44 MPV 8.5 fL (7.4-10.4) 11/03/20 06:44 Sodium 140 mmol/L (136-145) 11/03/20 06:44 Potassium 4.4 mmol/L (3.5-5.1) 11/03/20 06:44 Chloride 109 mmol/L (98-107) H 11/03/20 06:44 Carbon Dioxide 25 mmol/L (21-32) 11/03/20 06:44 Anion Gap 6.0 (3-11) 11/03/20 06:44 BUN 25 mg/dl (7-18) H 11/03/20 06:44 Creatinine 1.32 mg/dl (0.6-1.4) 11/03/20 06:44 Est Cr Clr Drug Dosing 65.0 ml/min 11/03/20 06:44 Est GFR ( Amer) 61.2 11/03/20 06:44 Est GFR (Non-Af Amer) 52.8 11/03/20 06:44 BUN/Creatinine Ratio 19.2 (10-20) 11/03/20 06:44 Glucose 151 mg/dl (70-99) H 11/03/20 06:44 POC Glucose 148 mg/dl (70-99) H 11/03/20 07:54 Calcium 8.8 mg/dl (8.5-10.1) 11/03/20 06:44 Blood Type A Positive 10/28/20 11:19 Antibody Screen NEGATIVE 10/28/20 11:19
[2020-11-03] MEDS: CHOLECALCIFEROL 1,000 UNITS 25 MCG TAB PO SCH (09:44)
[2020-11-03] MEDS: METOPROLOL SUCC 50MG EXT REL TAB PO SCH ×2 (09:44→22:06)
[2020-11-03] MEDS: FINASTERIDE 5 MG TAB PO SCH (15:08)
[2020-11-03] MEDS: ATORVASTATIN 40 MG TAB PO SCH (22:02)
[2020-11-03] MEDS: SENNA 8.6 MG TAB PO SCH (22:06)
[2020-11-04] MEDS: ACETAMINOPHEN 500 MG TAB PO SCH (06:15)
[2020-11-04 06:18] LABS: Hemoglobin 9.2 g/dL (14.0-18.0); Mean Corpuscular Hemoglobin 30.1 pg (25-34); Mean Corpuscular Hgb Conc 32.9 g/dL (32-36); Mean Corpuscular Volume 91.5 fL (80-100); Mean Platelet Volume 8.1 fL (7.4-10.4); Platelet Count 272 K/uL (130-400); RDW Coefficient of Variation 14.8 % (11.5-14.5); RDW Standard Deviation 49.3 fL (36.4-46.3); Red Blood Count 3.06 M/uL (4.7-6.1); White Blood Count 10.03 K/uL (4.8-10.8)
[2020-11-04 06:46] LABS: BUN Creatinine Ratio 29.8 (10-20); Calcium 8.2 mg/dl (8.5-10.1); Creatinine Clr Calc Pharmacy 64.1 ml/min; Est GFR (African American) 60.1; Est GFR (Non-African American) 51.8; Potassium 4.2 mmol/L (3.5-5.1)
[2020-11-04 06:51] LABS: Ferritin 24.6 ng/ml (8-388)
--- NOTE | 2020-11-04 07:06 | Orthopedic Progress Note ---
Date of Service November 04, 2020 Assessment & Plan (1) Primary osteoarthritis of left knee: Postop day 2 status post left total knee arthroplasty. PT/OT protocols. Weightbearing as tolerated. DVT prophylaxis-aspirin p.o. twice daily, Pletal p.o. twice daily, SCDs, CASIMIRO lion Pain management as written. AM labs-Hgb drop to 9.2 this am, acute blood loss anemia due to surgical loss and dilutional effect. Anemia workup by medicine service pending due to normocytic anemia preop. DC planning-plan for outpatient PT upon discharge. Plan on d/c home today if okay with medicine team Admission and Anticipated Discharge Date Admission Date: November 02, 2020 Subjective POD#2 left TKA. Pain well controlled. Anemic but is asymptomatic. Hgb drop to 9.2 this AM. No chest pain, sob, headache, dizziness, fever, chills. Review of Systems Constitutional: as per Subjective / HPI Physical Exam Physical Exam: Left knee OMKAR intact, suctioning. Drain site c/d/i. No calf tenderness. Good dorsiflexion. Distally n/v status and sensation are intact. Constitutional: well developed and well nourished; no acute distress Results & Data ([facility]) Vital Signs (Past 12 Hours) Vital Signs Temp Pulse Resp BP BP Pulse Ox 11/04/20 05:58 36.4 C L 76 18 124/75 94 11/03/20 22:50 36.7 C 83 18 118/71 95 11/03/20 22:00 85 123/73
--- NOTE | 2020-11-04 08:28 | Hospitalist Progress Note ---
Date of Service November 04, 2020 Assessment & Plan (1) Primary osteoarthritis of left knee: POD#2 s/p Left Total Knee Arthroplasty, Incision of Synovial Cyst, Partial Synovectomy with Dr. Aguilar. EBL 5cc. * PT/OT/pain management/bowel regimen/DVT prophylaxis per primary service * Pre-op h/h 11.9/36.8 * H/h 9.2/28 -- drop from surgery from blood loss on ASA BID, Pletal BID for DVT proph * Will given 500cc 1/2NS for some dehydration * Iron studies with low normal ferritin 24.6, and low iron at 29. TIBC and transferrin wnl. Trans % sat at 10 --> starting on iron supplementation ( --> per patient, he is unaware of chronic anemia and has never been on iron supplementation. --> He reports colonoscopy 2 years ago which was clear and he is not to have repeat for 8 more years) * --> Will start on daily iron supplementation and recommend patient have EGD if not already done as an outpatient --> To f/u with PCP about EGD in future -- discussed oral supplementation and continued with f/u PCP B12/Folate normal (2) CAD (coronary artery disease): * Patient has history of CABG in 2019 at [facility]. Also with HTN, also well controlled * Symptoms of cp/sob resolved since that time * ECHO did show EF 45-50% but did get cardic clearance for current surgery * He states since that time BPs have always been well controlled * Continue metoprolol 50+100mg as ordered, ASA 81mg (increased to BID for DVT proph), Lipitor 80mg. Not on TRACY/ARB * Held amlodipine for low BP but BPs better today and was resumed (3) PAD (peripheral artery disease): * Patient is known to have bilateral lower extremity claudication and a previous note by cardiology. * He was on Pletal aspirin atorvastatin as risk modifying agents. * The Pletal was held 4 days preoperatively and resumed BID for DVT proph along with ASA 81mg BID (4) Hyperlipidemia: * continued atorvastatin 80 mg daily (5) Obesity: * Patient suffers from morbid obesity with a BMI of 49.4 likely contributing to his osteoarthritis and also cardiovascular risk * Weight loss/diet exercise encouraged (6) Hyperglycemia: * Hx diabetes but not on medications currently * Pre-op A1c 6.8 * ISS while inpatient as received dexamethasone operatively * BSGs acceptable (7) CKD (chronic kidney disease) stage 3, GFR 30-59 ml/min: * Unclear baseline as PCP not [facility], however since Jun 2020 Cr 1.37, pre-op 1.3 and currently 1.32 assuming around baseline * Not on TRACY/ARB * Continued vitamin D supplementation * Would recommend follow up with PCP Cr 1.34 and stable (8) BPH (benign prostatic hyperplasia): * Finasteride 1.25mg [employer] - continued * VIT, unmeasured. No vasquez (9) DVT prophylaxis: * ASA BID, Pletal BID Thank you for allowing hospitalist service to participate in the care of Mr Whittington. Hospitalist service will sign off at this time Admission and Anticipated Discharge Date Admission Date: November 02, 2020 Supervising Physician Co-Signing Physician Notes PA Supervision Note: I did not personally see or examine the patient today, but I verified all todd points of KRISTYN Durant's assessment and plan with the following exceptions/additions: None Subjective Seen this morning. Doing well. Plans on d/c this afternoon. Got dose of IV Venofer and discussed low iron on labs and sent rx for supplementation. Never had EGD and discussed would be ideal for further eval -- he is to speak with his PCP at follow up. B12/folate pending. Plans for OPPT. No chest pain, shortness of breath, abdominal pain, nausea or vomiting. Passing gas but no BM -- anxious to get home to use his own bathroom. Review of Systems Review of Systems: All systems reviewed & are unremarkable except as noted in HPI & below Physical Exam Constitutional: WD/WN, vitals as above well groomed, cooperative and comfortable; no acute distress Eyes: + anicteric sclerae and PERRL ENMT: Ears: no hearing impairment Neck: normal visual inspection and trachea midline Respiratory: normal respiratory effort, lungs clear to auscultation Cardiovascular: RRR, no murmur, no edema (prior sternotomy scar noted) Gastrointestinal (Abdomen): normal bowel sounds, soft, nontender, no hepatosplenomegaly Musculoskeletal: left knee dressing c/d/i NVI DP, PT pulses palpable and equal bilaterally strength 5/5 with plantar and dorsiflexion calves nontender Skin: cool, dry Neurologic: PERRL, EOMI, accommodation nl, no face palsy, no dysarthria Psychiatric: A+Ox3, euthymic affect Genitourinary: NO VASQUEZ Lymphatic: no cervical or axillary lymphadenopathy Results & Data Results & Data ([facility]) Vital Signs (Past 12 Hours) Vital Signs Temp Pulse Resp BP BP Pulse Ox 11/04/20 05:58 36.4 C L 76 18 124/75 94 11/03/20 22:50 36.7 C 83 18 118/71 95 11/03/20 22:00 85 123/73 Laboratory Results 11/04/20 11/04/20 11/04/20 Range/Units 06:00 05:42 05:42 WBC 10.03 (4.8-10.8) K/uL RBC 3.06 L (4.7-6.1) M/uL Hgb 9.2 L (14.0-18.0) g/dL Hct 28.0 L (42-52) % MCV 91.5 (80-100) fL MCH 30.1 (25-34) pg MCHC 32.9 (32-36) g/dL RDW Std Deviation 49.3 H (36.4-46.3) fL RDW Coeff of Alexi 14.8 H (11.5-14.5) % Plt Count 272 (130-400) K/uL MPV 8.1 (7.4-10.4) fL Sodium (136-145) mmol/L Potassium (3.5-5.1) mmol/L Chloride (98-107) mmol/L Carbon Dioxide (21-32) mmol/L Anion Gap (3-11) BUN (7-18) mg/dl Creatinine (0.6-1.4) mg/dl Est Cr Clr Drug Dosing ml/min Est GFR ( Amer) Est GFR (Non-Af Amer) BUN/Creatinine Ratio (10-20) Glucose (70-99) mg/dl POC Glucose 113 H (70-99) mg/dl Calcium (8.5-10.1) mg/dl Iron (35-175) mcg/dl TIBC (250-450) mcg/dl Transferrin (200-360) mg/dl Transferrin % Sat (20-50) % Ferritin (8-388) ng/ml Vitamin B12 Pending Folate Pending 11/04/20 11/03/20 11/03/20 Range/Units 05:42 20:26 16:54 WBC (4.8-10.8) K/uL RBC (4.7-6.1) M/uL Hgb (14.0-18.0) g/dL Hct (42-52) % MCV (80-100) fL MCH (25-34) pg MCHC (32-36) g/dL RDW Std Deviation (36.4-46.3) fL RDW Coeff of Alexi (11.5-14.5) % Plt Count (130-400) K/uL MPV (7.4-10.4) fL Sodium 142 (136-145) mmol/L Potassium 4.2 (3.5-5.1) mmol/L Chloride 112 H (98-107) mmol/L Carbon Dioxide 30 (21-32) mmol/L Anion Gap 0 L (3-11) BUN 40 H D (7-18) mg/dl Creatinine 1.34 (0.6-1.4) mg/dl Est Cr Clr Drug Dosing 64.1 ml/min Est GFR ( Amer) 60.1 Est GFR (Non-Af Amer) 51.8 BUN/Creatinine Ratio 29.8 H (10-20) Glucose 104 H (70-99) mg/dl POC Glucose 132 H 124 H (70-99) mg/dl Calcium 8.2 L (8.5-10.1) mg/dl Iron 29 L (35-175) mcg/dl TIBC 276 (250-450) mcg/dl Transferrin 211 (200-360) mg/dl Transferrin % Sat 10 L (20-50) % Ferritin 24.6 (8-388) ng/ml Vitamin B12 Folate 11/03/20 Range/Units 12:15 WBC (4.8-10.8) K/uL RBC (4.7-6.1) M/uL Hgb (14.0-18.0) g/dL Hct (42-52) % MCV (80-100) fL MCH (25-34) pg MCHC (32-36) g/dL RDW Std Deviation (36.4-46.3) fL RDW Coeff of Alexi (11.5-14.5) % Plt Count (130-400) K/uL MPV (7.4-10.4) fL Sodium (136-145) mmol/L Potassium (3.5-5.1) mmol/L Chloride (98-107) mmol/L Carbon Dioxide (21-32) mmol/L Anion Gap (3-11) BUN (7-18) mg/dl Creatinine (0.6-1.4) mg/dl Est Cr Clr Drug Dosing ml/min Est GFR ( Amer) Est GFR (Non-Af Amer) BUN/Creatinine Ratio (10-20) Glucose (70-99) mg/dl POC Glucose 144 H (70-99) mg/dl Calcium (8.5-10.1) mg/dl Iron (35-175) mcg/dl TIBC (250-450) mcg/dl Transferrin (200-360) mg/dl Transferrin % Sat (20-50) % Ferritin (8-388) ng/ml Vitamin B12 Folate PG Care Time/CCT Total # of Minutes Spent Total Time Spent with Patient: Total time spent is greater than 50% in coordination of care (as documented) at patient's floor/unit and/or counseling patient: Coding Level of Care Code 50272 Subseq Obs Care Lvl 3 Diagnoses Primary osteoarthritis of left knee M17.12 CAD (coronary artery disease) I25.10 PAD (peripheral artery disease) I73.9 Hyperlipidemia E78.5 Obesity E66.9 Hyperglycemia R73.9 CKD (chronic kidney disease) stage 3, GFR 30-59 ml/min N18.30 BPH (benign prostatic hyperplasia) N40.0 DVT prophylaxis Z29.9
[2020-11-04] MEDS ORDERED: SODIUM CHLORIDE 0.45 % 1,000 ML IV SCH (08:30)
[2020-11-04] MEDS ORDERED: FERROUS SULFATE 325 MG TAB PO SCH (09:00)
[2020-11-04] MEDS: INSULIN ASPART 100 UNITS/ML 3 ML PEN SC SCH (09:01)
[2020-11-04] MEDS: ASPIRIN 81 MG ECTAB PO SCH (09:12)
[2020-11-04] MEDS: DOCUSATE SODIUM 100 MG CAP PO SCH (09:12)
[2020-11-04] MEDS: FINASTERIDE 5 MG TAB PO SCH (09:12)
[2020-11-04] MEDS: MULTIVITAMIN TAB PO SCH (09:13)
[2020-11-04] MEDS: METOPROLOL SUCC 50MG EXT REL TAB PO SCH (09:13)
[2020-11-04] MEDS: CYANOCOBALAMIN 500 MCG TABLET (VITAMIN B-12) PO SCH (09:13)
[2020-11-04] MEDS: CHOLECALCIFEROL 1,000 UNITS 25 MCG TAB PO SCH (09:13)
[2020-11-04] MEDS: ADVANCED PROBIOTIC 1250 MG CAPSULE PO SCH (09:13)
[2020-11-04] MEDS: ASCORBIC ACID 500 MG TAB PO SCH (09:14)
[2020-11-04] MEDS: cilostazoL 100 MG TAB PO SCH (09:15)
[2020-11-04 11:04] LABS: Folate (Folic Acid) > 20.00 ng/ml (>5.38); Vitamin B12 627 pg/ml (193-986)
--- NOTE | 2020-11-05 10:22 | Discharge Summary ---
Date of Service November 05, 2020 Admission HPI Per Admitting Provider 75 year old male with PMHx significant for hx of [place], CAD s/p quadruple bypass, PAD, HTN, high cholesterol who presents with ongoing left knee pain. Pain interfering with his daily activities. He has failed conservative measures including injections and antiinflammatories. He would like to proceed with left knee replacement. Patient denies headaches, sweats, fevers, chills, double vision, blurred vision, cough, sore throat, dysphagia, chest pain, sob, wheezing, n/v/d/c, numbness, tingling, fatigue, urinary symptoms, mood disorders. ROS positive for left knee pain and stiffness. Admission Exam Per Admitting Provider Constitutional: well developed and well nourished; no acute distress Eyes: PERRL, conjunctivae normal, anicteric sclerae ENMT: external ear and nose normal, oropharynx normal Neck: trachea midline, no thyromegaly Respiratory: normal respiratory effort, lungs clear to auscultation Cardiovascular: RRR, no murmur, no edema Musculoskeletal: Left Knee: ROM 0-120 with crepitation. Varus alignment. Tenderness medial joint line. Stable to valgus and varus stress. Positive Chayo's/ Skin: no rashes, warm and dry Neurologic: patellar DTR's 2+ bilat, sensation intact Psychiatric: A+Ox3, euthymic affect Principal Diagnosis Left knee osteoarthritis, anemia Discharge Exam Constitutional well developed and well nourished; no acute distress Eyes PERRL, conjunctivae normal, anicteric sclerae ENMT external ear and nose normal, oropharynx normal Neck trachea midline, no thyromegaly Respiratory normal respiratory effort, lungs clear to auscultation Cardiovascular RRR, no murmur, no edema Skin no rashes, warm and dry Neurologic patellar DTR's 2+ bilat, sensation intact Psychiatric A+Ox3, euthymic affect Discharge Data Allergies Allergy/AdvReac Type Severity Reaction Status Date / Time No Known Allergies Allergy Verified 11/02/20 09:01 Consultations 10/31/20 11:19 Consult Hospitalist Routine Procedures Performed Operation Date: 11/02/20 10:40 Actual Procedures p Left Total Knee Arthroplasty, Incision of Synovial Cyst, Partial Synovectomy (Left) - Jayce Aguilar MD Ordered Studies 11/02/20 05:00 US - OR guided needle placemen Routine Hospital Course (1) Primary osteoarthritis of left knee: Patient presented for same day admission following left total knee arthroplasty on 11/02/20. He tolerated procedure well. The Patient had an uneventful hospital course. Post-operatively, his activity was progressed and well tolerated. They participated in PT with ambulation distance of 325 feet. ROM of operative knee reached 97 degrees. Labs remained stable- lowest hemoglobin recorded: 9.2. [facility] hospitalist service was consulted for medical management during admission. Patient did have work up due to chronic anemia on admission. He was found to be iron deficient and recommended PCP follow up and iron replacement. Pain controlled on oral medications. Please refer to daily progress notes and PT notes for complete details. After exam on 11/04/20, patient was felt to be stable for discharge home with plans on attending outpatient PT. Patient will f/u in the office in about 2 weeks for further evaluation including x-rays and incision check, sooner if having any issues or concerns. Postop day 2 status post left total knee arthroplasty. PT/OT protocols. Weightbearing as tolerated. DVT prophylaxis-aspirin p.o. twice daily, Pletal p.o. twice daily, SCDs, CASIMIRO hose Pain management as written. AM labs-Hgb drop to 9.2 this am, acute blood loss anemia due to surgical loss and dilutional effect. Anemia workup by medicine service pending due to normocytic anemia preop. DC planning-plan for outpatient PT upon discharge. Plan on d/c home today if okay with medicine team Lab Results 10/28/20 11/02/20 11/02/20 Range/Units 11:19 08:54 17:21 WBC (4.8-10.8) K/uL RBC (4.7-6.1) M/uL Hgb (14.0-18.0) g/dL Hct (42-52) % MCV (80-100) fL MCH (25-34) pg MCHC (32-36) g/dL RDW Std Deviation (36.4-46.3) fL RDW Coeff of Alexi (11.5-14.5) % Plt Count (130-400) K/uL MPV (7.4-10.4) fL Sodium (136-145) mmol/L Potassium (3.5-5.1) mmol/L Chloride (98-107) mmol/L Carbon Dioxide (21-32) mmol/L Anion Gap (3-11) BUN (7-18) mg/dl Creatinine (0.6-1.4) mg/dl Est Cr Clr Drug Dosing ml/min Est GFR ( Amer) Est GFR (Non-Af Amer) BUN/Creatinine Ratio (10-20) Glucose (70-99) mg/dl POC Glucose 108 H 207 H (70-99) mg/dl Calcium (8.5-10.1) mg/dl Iron (35-175) mcg/dl TIBC (250-450) mcg/dl Transferrin (200-360) mg/dl Transferrin % Sat (20-50) % Ferritin (8-388) ng/ml Vitamin B12 (193-986) pg/ml Folate (>5.38) ng/ml Blood Type A Positive Antibody Screen NEGATIVE 11/02/20 11/03/20 11/03/20 Range/Units 20:46 06:44 06:44 WBC 14.53 H (4.8-10.8) K/uL RBC 3.77 L (4.7-6.1) M/uL Hgb 11.3 L (14.0-18.0) g/dL Hct 34.9 L (42-52) % MCV 92.6 (80-100) fL MCH 30.0 (25-34) pg MCHC 32.4 (32-36) g/dL RDW Std Deviation 48.2 H (36.4-46.3) fL RDW Coeff of Alexi 14.3 (11.5-14.5) % Plt Count 315 (130-400) K/uL MPV 8.5 (7.4-10.4) fL Sodium 140 (136-145) mmol/L Potassium 4.4 (3.5-5.1) mmol/L Chloride 109 H (98-107) mmol/L Carbon Dioxide 25 (21-32) mmol/L Anion Gap 6.0 (3-11) BUN 25 H (7-18) mg/dl Creatinine 1.32 (0.6-1.4) mg/dl Est Cr Clr Drug Dosing 65.0 ml/min Est GFR ( Amer) 61.2 Est GFR (Non-Af Amer) 52.8 BUN/Creatinine Ratio 19.2 (10-20) Glucose 151 H (70-99) mg/dl POC Glucose 168 H (70-99) mg/dl Calcium 8.8 (8.5-10.1) mg/dl Iron (35-175) mcg/dl TIBC (250-450) mcg/dl Transferrin (200-360) mg/dl Transferrin % Sat (20-50) % Ferritin (8-388) ng/ml Vitamin B12 (193-986) pg/ml Folate (>5.38) ng/ml Blood Type Antibody Screen 11/03/20 11/03/20 11/03/20 Range/Units 07:54 12:15 16:54 WBC (4.8-10.8) K/uL RBC (4.7-6.1) M/uL Hgb (14.0-18.0) g/dL Hct (42-52) % MCV (80-100) fL MCH (25-34) pg MCHC (32-36) g/dL RDW Std Deviation (36.4-46.3) fL RDW Coeff of Alexi (11.5-14.5) % Plt Count (130-400) K/uL MPV (7.4-10.4) fL Sodium (136-145) mmol/L Potassium (3.5-5.1) mmol/L Chloride (98-107) mmol/L Carbon Dioxide (21-32) mmol/L Anion Gap (3-11) BUN (7-18) mg/dl Creatinine (0.6-1.4) mg/dl Est Cr Clr Drug Dosing ml/min Est GFR ( Amer) Est GFR (Non-Af Amer) BUN/Creatinine Ratio (10-20) Glucose (70-99) mg/dl POC Glucose 148 H 144 H 124 H (70-99) mg/dl Calcium (8.5-10.1) mg/dl Iron (35-175) mcg/dl TIBC (250-450) mcg/dl Transferrin (200-360) mg/dl Transferrin % Sat (20-50) % Ferritin (8-388) ng/ml Vitamin B12 (193-986) pg/ml Folate (>5.38) ng/ml Blood Type Antibody Screen 11/03/20 11/04/20 11/04/20 Range/Units 20:26 05:42 05:42 WBC (4.8-10.8) K/uL RBC (4.7-6.1) M/uL Hgb (14.0-18.0) g/dL Hct (42-52) % MCV (80-100) fL MCH (25-34) pg MCHC (32-36) g/dL RDW Std Deviation (36.4-46.3) fL RDW Coeff of Alexi (11.5-14.5) % Plt Count (130-400) K/uL MPV (7.4-10.4) fL Sodium 142 (136-145) mmol/L Potassium 4.2 (3.5-5.1) mmol/L Chloride 112 H (98-107) mmol/L Carbon Dioxide 30 (21-32) mmol/L Anion Gap 0 L (3-11) BUN 40 H D (7-18) mg/dl Creatinine 1.34 (0.6-1.4) mg/dl Est Cr Clr Drug Dosing 64.1 ml/min Est GFR ( Amer) 60.1 Est GFR (Non-Af Amer) 51.8 BUN/Creatinine Ratio 29.8 H (10-20) Glucose 104 H (70-99) mg/dl POC Glucose 132 H (70-99) mg/dl Calcium 8.2 L (8.5-10.1) mg/dl Iron 29 L (35-175) mcg/dl TIBC 276 (250-450) mcg/dl Transferrin 211 (200-360) mg/dl Transferrin % Sat 10 L (20-50) % Ferritin 24.6 (8-388) ng/ml Vitamin B12 627 (193-986) pg/ml Folate > 20.00 (>5.38) ng/ml Blood Type Antibody Screen 11/04/20 11/04/20 Range/Units 05:42 06:00 WBC 10.03 (4.8-10.8) K/uL RBC 3.06 L (4.7-6.1) M/uL Hgb 9.2 L (14.0-18.0) g/dL Hct 28.0 L (42-52) % MCV 91.5 (80-100) fL MCH 30.1 (25-34) pg MCHC 32.9 (32-36) g/dL RDW Std Deviation 49.3 H (36.4-46.3) fL RDW Coeff of Alexi 14.8 H (11.5-14.5) % Plt Count 272 (130-400) K/uL MPV 8.1 (7.4-10.4) fL Sodium (136-145) mmol/L Potassium (3.5-5.1) mmol/L Chloride (98-107) mmol/L Carbon Dioxide (21-32) mmol/L Anion Gap (3-11) BUN (7-18) mg/dl Creatinine (0.6-1.4) mg/dl Est Cr Clr Drug Dosing ml/min Est GFR ( Amer) Est GFR (Non-Af Amer) BUN/Creatinine Ratio (10-20) Glucose (70-99) mg/dl POC Glucose 113 H (70-99) mg/dl Calcium (8.5-10.1) mg/dl Iron (35-175) mcg/dl TIBC (250-450) mcg/dl Transferrin (200-360) mg/dl Transferrin % Sat (20-50) % Ferritin (8-388) ng/ml Vitamin B12 (193-986) pg/ml Folate (>5.38) ng/ml Blood Type Antibody Screen Total Time Total Time Spent Total Time Spent (In Minutes): 20 Discharge Plan Discharge Items Patient Disposition: Home - Self-Care Reason For Visit: Osteoarthritis Left Knee Discharge Diagnosis: Osteoarthritis left knee Activity: Per Instructions section Weightbearing: Left weightbearing Weightbearing Comment: As tolerated with walker Non-emergency contact: Surgeon Call non-emergency contact if: you have any medication questions, your pain is not controlled, your pain is worsening, your pain is concerning for you, you have a fever, your temperature is above 101.5, your wound has increased redness and your wound has increased drainage Follow-up/Referrals: Ward Sapp [Primary Care Provider] - Diet: Carb Consistent or DM2 Addtl Attending Provider Instructions: ACTIVITY RECOMMENDATIONS: SELF CARE INSTRUCTIONS AFTER TOTAL KNEE REPLACEMENT A. You may need to continue a physical therapy program after discharge from the hospital. There are several options available to you. Your doctor will assist you in selecting the best one for you. 1. An out-patient facility 2 to 3 times a week for therapy or home therapy. 2. Continue working on all exercises taught to you in the hospital. Your goals should be to increase bending of your knee to 90 degrees and beyond and to fully straighten your knee. B. You may progress at your own pace from walking with a walker or crutches to a cane; then to no assistive devices. C. Make walking a part of your daily routine. Be up as much as comfortable with rest periods throughout the day. Rest with leg elevation is very important. Use the ice wrap frequently for the first 3-4 weeks. D. There are no restrictions on activities. You may ride in a car, shop, participate in net web application developer and all social activities. E. Wear the long elastic stockings (CASIMIRO hose) 20 hours a day for 2 weeks after surgery. They can be removed several times a day for laundering and for a bath. F. You may shower, no tub baths until cleared by your doctor. SPECIAL CARE INSTRUCTIONS: VERY IMPORTANT TO READ AND REVIEW A. There are a few signs you need to watch for after you are home. Call [facility] if you notice any of the followin. Increased severe knee pain. Some pain is expected especially when you exercise. 2. Increased swelling in your leg or knee; pain or swelling of the calf muscle in either lower leg. 3. Any fluid drainage from the incision. 4. Shortness of breath or chest pain. B. Please call [facility] at if you have any concerns or questions about your operation or recovery. The doctor or his nurse will return your call promptly. C. You must take antibiotics before dental work, bladder, bowel or other surgery. Your doctor will provide you with a permanent care to carry describing this precaution. IMPORTANT: * REMEMBER TO TAKE ASPIRIN, 81 MG, TWICE DAILY FOR 4 WEEKS UNLESS OTHERWISE DIRECTED. THIS IS YOUR BLOOD THINNER. * CALL IF INCREASED PAIN, REDNESS, DRAINAGE OR FEVER GREATER THAT 101. * WEAR CASIMIRO HOSE 20 HOURS PER DAY FOR 2 WEEKS. * OMKAR dressing - This is a large suction dressing covering your incision. This will help pull any excess drainage from the wound and allow your incision to heal properly. You may shower with this if you can keep the unit outside of the shower. If any bleeding or leakage is noted please call your doctor's office. This will remain on your incision for 7 days and then should be removed. This can be done yourself or by the home nursing staff if applicable. The entire unit is disposable once removed. Once removed, keep incision clean and dry. If redness or drainage is noted, please call your surgeon. . FOLLOW UP VISIT: If appointment is not already scheduled: Please call [facility] to make a follow-up appointment for 2 weeks after your surgery at . Addtl Installation Drafter Provider Instructions: Your hemoglobin was found to be low and you are already on B12 supplementation. B12 level pending at time of discharge but you should have follow up with PCP about additional replacement if needed. Your iron was found to be low and you were given IV Iron while in the hospital and have been sent a prescription for oral supplementation at discharge. You should follow up with PCP about obtaining an EGD for further evaluation of anemia. Pending Studies at Discharge: Yes Studies:: B12, folate Stand-Alone Forms: My [facility] [place], Smoking Cessation Medications and DC Order Prescriptions: New aspirin 81 mg Tablet,Delayed Release (Dr/Ec) 81 mg PO BID 30 Days Qty: 60 RF: 0 acetaminophen 500 mg Tablet 1,000 mg PO Q8 14 Days Qty: 84 RF: 0 oxycodone 5 mg Tablet 5 - 10 mg PO .Q4h-6h MDD 6 PRN (Reason: pain) Qty: 30 RF: 0 cefadroxil 500 mg capsule 500 mg PO BID Qty: 14 RF: 0 ferrous sulfate 325 mg (65 mg iron) tablet 325 mg PO DAILY Qty: 30 RF: 0 Continued multivitamin Tablet 1 tab PO QAM RF: 0 atorvastatin 80 mg Tablet 80 mg PO PM RF: 0 metoprolol succinate 100 mg Tablet Extended Release 24 Hr 50 - 100 mg PO BID RF: 0 cyanocobalamin (vitamin B-12) 1,000 mcg Tablet 1,000 mcg PO QAM RF: 0 amlodipine 5 mg Tablet 5 mg PO QAM RF: 0 ascorbic acid (vitamin C) [Vitamin C] 500 mg Tablet 500 mg PO QAM RF: 0 finasteride 1 mg Tablet 1.25 mg PO QAM RF: 0 fluocinolone acetonide oil 0.01 % Drops 5 drp OTB 2XWK RF: 0 cholecalciferol (vitamin D3) [Vitamin D3] 125 mcg (5,000 unit) Tablet 125 mcg PO QAM RF: 0 Probiotic Acidophilus 1.5 mg (250 million cell) Capsule 1,000 mmu cells PO QAM RF: 0 cilostazol 100 mg Tablet 100 mg PO BID RF: 0 Discontinued aspirin [Aspir-81] 81 mg Tablet,Delayed Release (Dr/Ec) 81 mg PO QPM RF: 0 Glucosamine Chondroitin 550-30-1 mg Capsule 1 cap PO QPM RF: 0 Discharge Orders: Discharge Order (Routine); Ordered 11/04/20 Ordered By: Albert Laurent/Other Patient Handouts: DVT Post Op Prevention Admission Data Admit Date/Time: 11/02/20 13:05 Attending Provider: Jayce Aguilar Admit Provider: Jayce Aguilar Primary Care Provider: Ward Sapp Other Providers: Chanel Lew Other Interventions: Discharge Summary Assessment (RN) Last Done: 11/04/20 10:07
== END 2020-11-04 11:49 | disposition home or self-care (01) ==
LOC: 3E 08:30 → ASU 08:30

== ENCOUNTER 2021-12-13 05:03 | Observation (INO) ==
--- NOTE | 2021-11-15 10:53 | PAT Medication Instructions ---
Medication Instructions Date of Service November 15, 2021 Home Medications Lactobacillus acidophilus 1.5 mg (250 million cell) capsule (Probiotic Acidophilus) 1,000 mmu cells PO QAM amlodipine 5 mg tablet 10 mg PO QAM ascorbic acid (vitamin C) 500 mg tablet (Vitamin C) 500 mg PO QAM atorvastatin 80 mg tablet 80 mg PO PM cholecalciferol (vitamin D3) 125 mcg (5,000 unit) tablet (Vitamin D3) 125 mcg PO QAM cyanocobalamin (vitamin B-12) 1,000 mcg tablet 1,000 mcg PO QAM finasteride 1 mg tablet 1.25 mg PO QAM fluocinolone acetonide oil 0.01 % ear drops 5 drp OTB 2XWK metoprolol succinate 100 mg tablet,extended release 24 hr 50 - 100 mg PO BID multivitamin 1 tab PO QAM cilostazol 100 mg tablet 100 mg PO BID aspirin 81 mg tablet,delayed release 81 mg PO BID glucosamine sulf dipot chlr,msm,chond 550 mg-C 30 mg-michelle 1 mg capsule (Glucosamine Chondroitin) 1 cap PO QPM acetaminophen 500 mg tablet (Tylenol Extra Strength) 1,000 mg PO UD PRN Continue as directed fluocinolone acetonide oil 0.01 % ear drops 5 drp OTB 2XWK ASK your prescriber and surgeon cilostazol 100 mg tablet 100 mg PO BID (in order for spinal anesthesia, Cilostazol/Pletal needs to be stopped 4 days before surgery. Please check if okay with doctor that prescribes this to you) aspirin 81 mg tablet,delayed release 81 mg PO BID STOP taking 2 weeks before surgery (or as soon as possible if surgery is within 2 weeks) glucosamine sulf dipot chlr,msm,chond 550 mg-C 30 mg-michelle 1 mg capsule (Glucosamine Chondroitin) 1 cap PO QPM DO NOT take the morning of surgery Lactobacillus acidophilus 1.5 mg (250 million cell) capsule (Probiotic Acidophilus) 1,000 mmu cells PO QAM ascorbic acid (vitamin C) 500 mg tablet (Vitamin C) 500 mg PO QAM cholecalciferol (vitamin D3) 125 mcg (5,000 unit) tablet (Vitamin D3) 125 mcg PO QAM cyanocobalamin (vitamin B-12) 1,000 mcg tablet 1,000 mcg PO QAM multivitamin 1 tab PO QAM Take morning of surgery With a small sip of water, OTHERWISE NOTHING TO EAT OR DRINK AFTER MIDNIGHT: amlodipine 5 mg tablet 10 mg PO QAM finasteride 1 mg tablet 1.25 mg PO QAM metoprolol succinate 100 mg tablet,extended release 24 hr 50 - 100 mg PO BID acetaminophen 500 mg tablet (Tylenol Extra Strength) 1,000 mg PO UD PRN (okay to take up to 4 hours prior to surgery if needed) Take evening before surgery atorvastatin 80 mg tablet 80 mg PO PM metoprolol succinate 100 mg tablet,extended release 24 hr 50 - 100 mg PO BID acetaminophen 500 mg tablet (Tylenol Extra Strength) 1,000 mg PO UD PRN (if needed) Other Notes If you have any questions please call us at [phone] or [phone] or [phone] or [phone]
--- NOTE | 2021-11-17 11:47 | Anesthesiology Consultation ---
Date of Service November 17, 2021 Assessment & Plan (1) Encounter for pre-operative examination: - COVID screening: Per assessment on 11/17: No known COVID-19 positive contacts or current COVID-19 related symptoms. Travel screen negative x2+ weeks. Patient vaccinated. Surgeon arranging preop COVID testing. Awaiting results. - Check BSG AM DOS - S/P Left TKA (11/02/20): SAB at L3/L4 x1 attempt + PNB at [facility] - Cardiology office visit (06/29/21): "Coronary artery disease.. doing very well, no clinical angina, cont ASA, Statin.. Hypertension - controlled.. A fib - one isolated event post operative, ekg reviewed and shows sinus tach with PVCs, no indication for AC.. Return in about 1 year" - Cilastozil instructions: patient made aware that in order for spinal anesthesia, Cilastozil needs to be held 4 days prior to surgery. Patient voiced understanding/will check if okay with prescriber. ASA instructions per surgeon/prescriber. Chart Review Chart Review: Acceptable Risk for Surgery and Patient seen in Pre Admission Testing Teaching & Discussion Pre-Anesthesia Teaching/Discussion Notes: Instructed NPO after midnight before surgery,except medications with 15 cc of water. Medication instructions provided according to the PAT guidelines. History Surgery Operation Date: 12/13/21 07:15 Proposed Procedures p Right Total Knee Arthroplasty - Jayce Aguilar MD Height/Weight Height: 5 ft 10 in Weight: 127.5 kg Allergies Allergy/AdvReac Type Severity Reaction Status Date / Time No Known Allergies Allergy Verified 11/15/21 09:46 Medications Home Medications Medication Instructions Recorded Confirmed Last Taken Lactobacillus acidophilus 1.5 mg 1,000 mmu cells PO QAM 06/09/20 11/15/21 11/01/20 08:00 (250 million cell) capsule (Probiotic Acidophilus) amlodipine 5 mg tablet 10 mg PO QAM 06/09/20 11/15/21 11/02/20 06:15 ascorbic acid (vitamin C) 500 mg 500 mg PO QAM 06/09/20 11/15/21 11/01/20 08:00 tablet (Vitamin C) atorvastatin 80 mg tablet 80 mg PO PM 06/09/20 11/15/21 11/01/20 20:00 cholecalciferol (vitamin D3) 125 125 mcg PO QAM 10/29/20 04/06/22 03/23/21 08:00 mcg (5,000 unit) tablet (Vitamin D3) cyanocobalamin (vitamin B-12) 1,000 mcg PO QAM 06/09/20 11/15/21 Unknown 1,000 mcg tablet finasteride 1 mg tablet 1.25 mg PO QAM 06/09/20 11/15/21 11/02/20 06:15 fluocinolone acetonide oil 0.01 % 5 drp OTB 2XWK 06/09/20 11/15/21 11/01/20 08:00 ear drops metoprolol succinate 100 mg 50 - 100 mg PO BID 06/09/20 11/15/21 11/02/20 06:15 tablet,extended release 24 hr multivitamin 1 tab PO QAM 06/09/20 11/15/21 11/01/20 08:00 cilostazol 100 mg tablet 100 mg PO BID 06/21/20 11/15/21 10/30/20 08:00 aspirin 81 mg tablet,delayed 81 mg PO BID 06/07/21 11/15/21 Unknown release glucosamine sulf dipot 1 cap PO QPM 06/07/21 11/15/21 Unknown chlr,msm,chond 550 mg-C 30 mg-michelle 1 mg capsule (Glucosamine Chondroitin) acetaminophen 500 mg tablet 1,000 mg PO UD PRN 11/15/21 11/15/21 Unknown (Tylenol Extra Strength) Past Medical History Medical History A-fib Isolated post-op event. Per cardio 06/2021, no indication for AC. CAD (coronary artery disease) s/p CABG x4 (06/2019) Chronic anemia CKD (chronic kidney disease) stage 3, GFR 30-59 ml/min Diet-controlled diabetes mellitus Hyperlipidemia Hypertension Myocardial Infarction 1988, [address] Reyes Obesity PAD (peripheral artery disease) Arterial insufficiency- on Cilostazol, follows with vascular (Dr. Villar/Uri) Sleep apnea CPAP (compliant) Exercise / Class Metabolic Activity III < 4 Walking/Shop/Light housework Past Surgical History Surgical History History of adenoidectomy History of cardiac cath multiple, most recent 2018 (prior to CABG) History of cataract surgery R/L History of colonoscopy multiple History of coronary artery bypass graft CABG x4 (06/2019)- [facility] History of left knee replacement Left TKA (11/02/20): SAB at L3/L4 x1 attempt + PNB at [facility] History of tonsillectomy Past Anesthesia History No Hx of Anesthesia Complications and No Family Hx of Anesthesia Complications History of PONV No Hx of PONV and No Hx of Motion Sickness Social History Smoking Status: Former smoker tobacco type: cigarettes Do You Dip or Chew Tobacco: No Smoking End Date: Quit 12+ years ago Hx Alcohol Use: Yes Alcohol type: beer alcohol intake frequency: a few times a week (3-4 beers/week) Hx Substance Use: No substance use type: does not use Review of Systems Patient denies chest pain, shortness of breath, fever, chills, cough, wheezing, palpitations. Physical Exam Vital Signs VITALS BP 123/74 P 87 TEMP 98.3 SP02 94%RA RESP 18 PHYSICAL Decreased cervical extension range of motion. Full TMJ range of motion. TMD 3.5 finger breaths Mallampati Score 3 Dentition: missing molars, possible caps/crowns Lungs: clear throughout to auscultation Cardiac: regular rate and rhythm, no murmurs noted Spine: normal Carotid arteries: negative bruit Extremities: no edema Short neck Lab Results Anesthesia Preop Results Results Anesthesia Widget: WBC 7.02 K/uL (4.8-10.8) 11/17/21 Hgb 11.6 g/dL (14.0-18.0) L 11/17/21 Hct 35.5 % (42-52) L 11/17/21 Plt 329 K/uL (130-400) 11/17/21 Na 141 mmol/L (136-145) 11/17/21 K 4.2 mmol/L (3.5-5.1) 11/17/21 Cl 105 mmol/L (98-107) 11/17/21 CO2 27 mmol/L (21-32) 11/17/21 BUN 18 mg/dl (6-23) 11/17/21 Creat 1.26 mg/dl (0.6-1.4) 11/17/21 Glucose Level 93 mg/dl (70-99(Fasting)) 11/17/21 PT 9.9 Seconds (9.0-12.0) 11/17/21 PTT 25.1 Seconds (21.0-31.0) 11/17/21 INR 0.9 (0.9-1.1) 11/17/21 HA1c 6.7 % (4.5-5.6) H 11/17/21 Urine Color Dark Yellow 11/17/21 Urine Appearance Clear (Clear) 11/17/21 Urine pH 6.5 (4.5-7.5) 11/17/21 Urine Specific [place] 1.024 (1.000-1.030) 11/17/21 Urine Protein Negative (Negative) 11/17/21 Urine Glucose (UA) Negative (Negative) 11/17/21 Urine Ketones Trace (Negative) H 11/17/21 Urine Blood Negative (Negative) 11/17/21 Urine Nitrite Negative (Negative) 11/17/21 Urine Bilirubin Negative (Negative) 11/17/21 Urine Urobilinogen Negative (Negative) 11/17/21 Urine Leukocyte Esterase Negative (Negative) 11/17/21 Blood Type A Positive 11/17/21 Antibody Screen NEGATIVE 11/17/21 Testing Electrocardiogram Date: 06/29/21 Sinus rhythm at 82 bpm. Old inferior infarct. Chest X-Ray Date: 11/17/21 FINDINGS: No pneumothorax. No pleural effusions. The lungs are clear. There are poststernotomy changes. The heart is normal in size. There is a mildly tortuous thoracic aorta. There are low lung volumes. Degenerative changes again noted within the thoracic spine. IMPRESSION: No significant change compared to the prior study. No acute process. Echocardiogram Date: 08/25/19 LV Function: normal EF 50 to 55%. Mild LVH. Calcified aortic valve. NITIN is 3.9 cm and mean gradient is 4 mmHg. Grade 1 diastolic dysfunction. Stress Test Date: 04/23/19 Type: nuclear Based upon EKG criteria, this test is negative. Based upon nuclear imaging findings there is lateral wall ischemia, inferior wall infarction, and mild residual ischemia.Subsequent CABGx4 done 06/2019.
--- NOTE | 2021-12-12 06:09 | History & Physical Report ---
Date of Service December 12, 2021 Assessment & Plan (1) Primary osteoarthritis of right knee: Plan: Treatment options discussed with patient. He has failed conservative measures. Risks, benefits and alternatives to surgery including but not limited to infection, DVT, pain, stiffness, need for revision surgery, damage to blood vessels, damage to nerves, PE, , were discussed with the patient and they wish to proceed. Plan on right total knee arthroplasty at [facility] on 12/13/[address] Aguilar. Will plan on aspirin 81mg BID x 1 mo post op for DVT prophylaxis. Patient has a baseline normocytic anemia with preop hemoglobin of 11.6. Will need to closely monitor H&H post operatively. Will plan on outpatient PT post discharge from the hospital. All questions answered. He will follow up post operatively. History of Present Illness Chief Complaint: Right knee pain Primary Care Provider: Ward Sapp DO 76 year old male with PMHx significant for hx of [place], CAD s/p quadruple bypass, PAD, HTN, high cholesterol, DEE, DM2 diet controlled who presents with ongoing right knee pain. Pain interfering with his daily activities. He has failed conservative measures including injections and antiinflammatories. He would like to proceed with left knee replacement. Patient denies headaches, sweats, fevers, chills, double vision, blurred vision, cough, sore throat, dysphagia, chest pain, sob, wheezing, n/v/d/c, numbness, tingling, fatigue, urinary symptoms, mood disorders. ROS positive for right knee pain and stiffness. Allergies Allergy/AdvReac Type Severity Reaction Status Date / Time No Known Allergies Allergy Verified 11/15/21 09:46 Home Medications Medication Instructions Recorded Confirmed Type Lactobacillus acidophilus 1.5 mg 1,000 mmu cells PO QAM 06/09/20 11/15/21 Hist ory (250 million cell) capsule (Probiotic Acidophilus) amlodipine 5 mg tablet 10 mg PO QAM 06/09/20 11/15/21 History ascorbic acid (vitamin C) 500 mg 500 mg PO QAM 06/09/20 11/15/21 History tablet (Vitamin C) atorvastatin 80 mg tablet 80 mg PO PM 06/09/20 11/15/21 History cholecalciferol (vitamin D3) 125 125 mcg PO QAM 06/09/20 11/15/21 History mcg (5,000 unit) tablet (Vitamin D3) cyanocobalamin (vitamin B-12) 1,000 mcg PO QAM 06/09/20 11/15/21 History 1,000 mcg tablet finasteride 1 mg tablet 1.25 mg PO QAM 06/09/20 11/15/21 History fluocinolone acetonide oil 0.01 % 5 drp OTB 2XWK 06/09/20 11/15/21 History ear drops metoprolol succinate 100 mg 50 - 100 mg PO BID 06/09/20 11/15/21 History tablet,extended release 24 hr multivitamin 1 tab PO QAM 06/09/20 11/15/21 History cilostazol 100 mg tablet 100 mg PO BID 06/21/20 11/15/21 History aspirin 81 mg tablet,delayed 81 mg PO BID 06/07/21 11/15/21 History release glucosamine sulf dipot 1 cap PO QPM 06/07/21 11/15/21 History chlr,msm,chond 550 mg-C 30 mg-michelle 1 mg capsule (Glucosamine Chondroitin) acetaminophen 500 mg tablet 1,000 mg PO UD PRN 11/15/21 11/15/21 History (Tylenol Extra Strength) Past Med/Surg History Medical History A-fib Isolated post-op event. Per cardio 06/2021, no indication for AC. CAD (coronary artery disease) s/p CABG x4 (06/2019) Chronic anemia CKD (chronic kidney disease) stage 3, GFR 30-59 ml/min Diet-controlled diabetes mellitus Hyperlipidemia Hypertension Myocardial Infarction 1988, [address] Reyes Obesity PAD (peripheral artery disease) Arterial insufficiency- on Cilostazol, follows with vascular (Dr. Villar/Uri) Sleep apnea CPAP (compliant) Surgical History History of adenoidectomy History of cardiac cath multiple, most recent 2018 (prior to CABG) History of cataract surgery R/L History of colonoscopy multiple History of coronary artery bypass graft CABG x4 (06/2019)- [facility] History of left knee replacement Left TKA (11/02/20): SAB at L3/L4 x1 attempt + PNB at [facility] History of tonsillectomy Social History Smoking Status: Former smoker Second Hand Exposure: No; Hx Alcohol Use: Yes Alcohol type: beer Hx Substance Use: No Preferred Language: Bruneian Communication Ability: Effective Logistics Assistant Required: No Beliefs That Will Affect Care: None marital status: Current Living Situation: Spouse Feels Safe at Home: Yes Assistive Devices: CPAP Review of Systems All systems reviewed & are unremarkable except as noted in HPI & below Physical Exam Constitutional: well developed and well nourished; no acute distress Eyes: PERRL, conjunctivae normal, anicteric sclerae ENMT: external ear and nose normal, oropharynx normal Neck: trachea midline, no thyromegaly Respiratory: normal respiratory effort, lungs clear to auscultation Cardiovascular: RRR, no murmur, no edema Musculoskeletal: Right Knee: ROM 0-130 degrees with crepitation. Varus alignment. Tenderness medial joint line. Stable to valgus and varus stress. Positive Chayo's Skin: no rashes, warm and dry Neurologic: patellar DTR's 2+ bilat, sensation intact Psychiatric: A+Ox3, euthymic affect Results & Data ([facility]) Diagnostic Findings Right knee: Tricompartmental degenerative changes. Bone on bone medial compartment in flexion. Subluxation femur medially on tibia. Osteophyte formation and subchondral sclerosis all 3 compartments.
[2021-12-13] MEDS ORDERED: ROPIVACAINE 0.5% HCL/PF 150 MG, BUPIVACAINE 0.75% MPF 20 ML, EPINEPHrine 30MG/30ML (OR ... INSTIL SCH (06:00)
[2021-12-13] MEDS ORDERED: FAMOTIDINE 20 MG TAB PO SCH (06:00)
[2021-12-13] MEDS ORDERED: GABAPENTIN 300 MG CAP PO SCH (06:00)
[2021-12-13] MEDS ORDERED: TRANEXAMIC ACID 1,000 MG **IV Pre-op IV SCH (06:00)
[2021-12-13] MEDS ORDERED: TRANEXAMIC ACID 1,000 MG **IV Intra-op IV SCH (06:00)
[2021-12-13] MEDS ORDERED: LR 500ML BOLUS, THEN 15ML/HR IV SCH (06:00)
[2021-12-13] MEDS ORDERED: ACETAMINOPHEN 500 MG TAB PO SCH (06:00)
[2021-12-13] MEDS ORDERED: dexAMETHasone 4 MG TAB PO SCH (06:00)
[2021-12-13] MEDS ORDERED: METOCLOPRAMIDE HCL 10 MG TABLET PO SCH (06:00)
[2021-12-13] MEDS ORDERED: CeleBREX 200 MG CAP PO SCH (06:00)
[2021-12-13] MEDS ORDERED: ROPIVACAINE 0.5% 5 MG/ML 30 ML VIAL ONE (06:16)
[2021-12-13] MEDS ORDERED: BUPIVACAINE 0.5 % 5 MG/1 ML PF 10ML VIAL ONE (06:16)
[2021-12-13] MEDS ORDERED: PROPOFOL IV EMULSION 10 MG/ML 20 ML VIAL IV ONE (06:18)
[2021-12-13] MEDS ORDERED: fentaNYL citrate 100 MCG/2 ML VIAL ONE (06:21)
[2021-12-13] MEDS ORDERED: MIDAZOLAM HCL 1 MG/ML 2ML VIAL ONE ×2 (06:21→07:20)
--- NOTE | 2021-12-13 06:43 | History & Physical Bridge Note ---
Date of Service December 13, 2021 History & Physical Bridge Note I have examined the patient, reviewed the History & Physical and in the interval since the performance of the History & Physical I have noted the following changes of clinical significance: no changes noted
[2021-12-13] MEDS ORDERED: ORTHO JOINT ANESTHETIC ONE (07:05)
[2021-12-13] MEDS ORDERED: fentaNYL citrate 100 MCG/2 ML VIAL IV PRN (07:24)
[2021-12-13] MEDS ORDERED: ATROPINE SULFATE 0.1 MG/ML 10ML SYR IV PRN (07:24)
[2021-12-13] MEDS ORDERED: ONDANSETRON INJ 2 MG/ML 2 ML VIAL IV PRN ×2 (07:24→10:59)
[2021-12-13] MEDS ORDERED: PROMETHAZINE HCL 12.5 MG in SODIUM CHLORIDE 0.9% 50 ML IV PRN (07:24)
[2021-12-13] MEDS ORDERED: HYDROmorphone INJ 2 MG/ML SYR/VIAL IV PRN (07:24)
[2021-12-13] MEDS ORDERED: ePHEDrine sulfate 50 MG/ML AMP IV PRN (07:24)
--- NOTE | 2021-12-13 09:30 | Post Operative Brief Note ---
Immediate Post Op Note v1 Date of Surgery December 13, 2021 Pre & Post Diagnosis Operation Date: 12/13/21 07:00 Pre-Op Diagnosis: Right Knee Osteoarthritis Post-Op Diagnosis: Right Knee Osteoarthritis I identified the patient and participated in the time-out.: Yes Procedure Operation Date: 12/13/21 07:00 Actual Procedures p Right Total Knee Arthroplasty(Right), superficial wound VAC- Jayce Aguilar MD Surgeon Jayce Aguilar MD Sponge Diver Arnulfo SIMONS Estimated Blood Loss 5 Findings Consistent with Post-Op Diagnosis Specimens Bone cuts Drains Hemovac Drain Anesthesia Type MAC Spinal Regional Complications none Disposition Accompanied Patient To Recovery: No Disposition: Recovery Room Overlapping Procedure I was immediately available: during the entire case.
--- NOTE | 2021-12-13 09:38 | Operative Report ---
Post Operative Report Pre & Post Diagnosis Operation Date: 12/13/21 07:00 Pre-Op Diagnosis: Right Knee Osteoarthritis Post-Op Diagnosis: Right Knee Osteoarthritis I identified the patient and participated in the time-out.: Yes Procedure Operation Date: 12/13/21 07:00 Actual Procedures p Right Total Knee Arthroplasty(Right), superficial wound VAC- Jayce Aguilar MD Surgeon Jayce Aguilar MD Research And Development Engineer Arnulfo SIMONS Estimated Blood Loss 5 Findings Consistent with Post-Op Diagnosis Specimens Bone cuts Drains 2 Hemovac Anesthesia Type MAC Spinal Regional Complications none Disposition Disposition: Recovery Room Indications 76-year-old male with chronic progressive osteoarthritis in his right knee. Patient has had a successful left knee replacement wants to right knee rep lacement. Right knee has advanced osteoarthritis [id number] medial compartment with subluxation. Description of Procedure Patient taken to the operating room the size under spinal MAC regional block anesthesia. Patient was placed supine on the operating table. A pneumatic tourniquet was placed about the right moderately obese upper thigh. The right lower extremity was prepped and draped in sterile fashion. Knee exam demonstrated varus knee 0 through 125 degrees range of motion no varus valgus instability positive Dang exam. The leg was elevated exsanguinated with an Esmarch bandage and pneumatic tourniquet was raised to 325 millimeters of mercury. Skin incised sharply in longitudinal fashion. Subcutaneous flaps elevated. Incision was made through the medial retinaculum extending up in the mid third of the quadriceps tendon and down to the medial tibial tubercle. Intra-articular findings demonstrated tricompartmental DJD grade 4 medial compartment [id number] grade 4 lateral compartment due to subluxation medial aspect of lateral femoral condyle with ridging and grade 4 trochlear disease. There was a chronic high-grade partial ACL tear with thin strand of ACL remaining only. The Live Gamern total knee arthroplasty system was used. To expose the knee the infrapatellar fat pad was resected. The meniscal rem nants and cruciate ligaments were resected. The anterior fat pad over the femur in the area of the anterior flange of the femoral component was resected. Lateral synovial bands release. The femur was exposed. An intramedullary drill hole was made into the canal. A guide bhanu was placed. Distal femoral cutting guide was adjusted to resect a 5 degree valgus cut with 8 millimeters distal femur resected. The knee was extended and a subperiosteal peel lateral release was performed around the patella. Patella width was measured and width was reproduced using a freehand cut technique and a 39 patella component. The 3 drill holes were made and the excess lateral facet was beveled off to prevent any impingement. Attention was taken back to the femur which was exposed with retractors and the femoral sizing guide was pinned in position. The drill holes were placed in 3 of external rotation to match epicondylar axis. Femur sized for a 7 component. The 4-in-1 cutting block was placed and then the anterior posterior and chamfer cuts are made. The tibia was then subluxed. The external tibial cutting guide was just to make a perpendicular cut to the long axis of the tibia below the most deficient bone loss side. A lamina offset plate maker was used and the flexion extension gaps were balanced. This required some medial and posterior medial release all posterior osteophytes removed. All meniscal remnants were resected. The tibia exposed. Drill holes were made in the sclerotic medial side with the bone was extremely hard to enhance cement fixation. A posterior medial cyst in the bone was curetted out. The trial tibial component size 6 was externally rotated in line with the tibial tubercle and pinned in position. The punch for stem was used. The notch cutting device was centered appropriately and the femoral notch cut was made. The femoral trial was inserted. Trial tibial inserts were placed and size 13 gave balanced ligaments through flexion and extension. Patella tracking was assessed. The patella tracked centrally. The trial components were then removed and the orthomix anesthetic cocktail was injected per protocol. The knee was then copiously irrigated with pulsatile lavage saline solution. Final components were then cemented with Simplex cement. Final components were Joelle triathlon size 7 posterior stabilized right femoral component, 6 tibial component, 13 mm posterior stabilized polyethylene tibial insert, 39 x 11 mm symmetrical patella. After the cement cured the Betadine soak was used for 3 minutes. Further pulsatile lavage irrigation was then performed and 2 Hemovac drains were brought out laterally. The quadriceps tendon and medial retinaculum were closed with figure of 8 #1 Vicryl sutures. The knee was taken through full range of motion and the repair was secure. Knee range of motion was 0 through 130 degrees. The subcutaneous tissues were closed with 2-0 Vicryl sutures. Skin was closed with mehran. A morena and Acticoat superficial wound VAC was applied. The patient tolerated the procedure well. Arnulfo SIMONS was my physician registrar assistant who participated as senior executive assistant and was involved in all aspects of the procedure including patient positioning prepping and draping,leg positioning ,soft tissue retraction and instrument management and participated in the closing and will participate in postoperative care of the patient. The patient tolerated the procedure well. I attest to the content of the Intraoperative Record and any orders documented therein. Any exceptions are noted below.
--- NOTE | 2021-12-13 10:21 | XRay Report ---
RIGHT KNEE 2 VIEWS History: Right total knee arthroplasty. Degenerative arthritis. Postop. FINDINGS: The patient is status post a right total knee arthroplasty. The hardware is intact. No frac ture or dislocation. Skin mehran and surgical drains are in place. IMPRESSION: Right total knee arthroplasty. No evidence for hardware complication. ACT 112: Negative or not required by law. Electronically signed by: Dionte Aguirre M.D. 12/13/2021 10:20 AM
[2021-12-13] MEDS ORDERED: bisacodyL 10 MG SUPP PR PRN (10:59)
[2021-12-13] MEDS ORDERED: ACETAMINOPHEN 500 MG TAB PO PRN (10:59)
[2021-12-13] MEDS ORDERED: TAMSULOSIN HCL 0.4 MG CAP PO PRN (10:59)
[2021-12-13] MEDS ORDERED: MAGNESIUM HYDROXIDE SUSP 30 ML UDC PO PRN (10:59)
[2021-12-13] MEDS ORDERED: METOCLOPRAMIDE HCL INJ 5 MG/ML 2 ML VIAL IV PRN (10:59)
[2021-12-13] MEDS ORDERED: HYDROmorphone INJ 0.5 MG/0.5 ML SYR IV PRN (10:59)
[2021-12-13] MEDS ORDERED: oxyCODONE HCL IR 5 MG TAB (IMMEDIATE RELEASE) PO PRN (10:59)
[2021-12-13] MEDS ORDERED: NALOXONE HCL 0.4 MG/1 ML VIAL/CARP IV PRN (10:59)
[2021-12-13] MEDS: SODIUM CHLORIDE 0.9% 1000ML 1,000 ML IV SCH ×2 (11:37→20:24)
[2021-12-13] MEDS ORDERED: METOPROLOL SUCC 50MG EXT REL TAB PO STA (11:47)
--- NOTE | 2021-12-13 11:52 | Hospitalist Consultation ---
Date of Consultation December 13, 2021 Assessment & Plan (1) Primary osteoarthritis of right knee: POD # 0 from right TKA performed under mask MAC and regional anesthetic - ABX per primary service - Pain control per primary service- rescue narcan is available on the chart - IVF per primary service - PT/OT per primary service - Transfusion per primary service - Diet per primary service - VTE prophylaxis per primary service (2) PAD (peripheral artery disease): Asa and Pletal - ASA tonight - Pletal to start tomorrow (3) Obesity: Continue with weight loss efforts following surgical recovery (4) Hyperlipidemia: Continue atorvastatin 80mg PO daily (5) CAD (coronary artery disease): CAD with CABG x4- stable symptoms- cardiology note reviewed from Jul 02 - Continue with BB - Continue ASA - Continue statin - Metoprolol 100mg PO now- patient reports not taking this morning (6) BPH (benign prostatic hyperplasia): Symrptoms controlled- continue with finasteride (7) Sleep apnea: CPAP 15cm H20 - Wear while napping and at night while receiving sedating medications/narcotics (8) Hyperglycemia: Dextrose checks Ac/HS- notify provider if > 180mg/DL and will add coverage History of Present Illness Reason for Consultation: Medical Managment Requesting Physician: Dr. Aguilar Attending Physician: Jayce Aguilar MD History of Present Illness 76 YOM medical history of: CAD, CABG x4 (BECERRA/LAD, REUBEN/BECERRA, REUBEN/OM1, VG/PDA(2019)), HLD, HTN, DEE, PAD/PVD, AFIB x1 following recovery from CABG- no further episodes known. Hospitalis service was consulted for medical management by his primary orthopaedics service. Patient is POD #0 from total right knee arthroplasty by Dr. Aguilar. Operation was performed with Mask MAC and regional block. EBL was 5ml. Patient was evaluated in his room post operatively. Chart was reviewed with no available PCP notes or recent imaging or ECG noted for review. Medical review performed from records currently available and patient interview. Patient overall feels he "great", he is hoping this knee replacement will help him get more active and back to golf- he had his other knee replaced back in 10/30. Patient denies any cardiac chest pain or dyspnea worse with exertion. Currently pain controlled and tolerating crackers with water. No nausea. He did not take his medications this morning. Medication list reviewed. Recommendations: - CPAP ordered- 15 CM H20 at night and while napping while receiving sedating medications - Metoprolol XL 100mg PO now- then continue with his 50mg at PM and 100mg QAM - Pain medications tiered with rescue Narcan available as you have done - Continue ASA bid and Pletal -will change Pletal to start 12/14/21- ASA tonight - Follow hemodynamics and labs in morning Allergies Allergy/AdvReac Type Severity Reaction Status Date / Time No Known Allergies Allergy Verified 12/13/21 05:38 Home Medications Medication Instructions Recorded Confirmed Type Lactobacillus acidophilus 1.5 mg 1,000 mmu cells PO QAM 06/09/20 12/13/21 History (250 million cell) capsule (Probiotic Acidophilus) amlodipine 5 mg tablet 10 mg PO QAM 06/09/20 12/13/21 History ascorbic acid (vitamin C) 500 mg 500 mg PO QAM 06/09/20 12/13/21 History tablet (Vitamin C) atorvastatin 80 mg tablet 80 mg PO PM 06/09/20 12/13/21 History cholecalciferol (vitamin D3) 125 125 mcg PO QAM 06/09/20 12/13/21 History mcg (5,000 unit) tablet (Vitamin D3) cyanocobalamin (vitamin B-12) 1,000 mcg PO QAM 06/09/20 12/13/21 History 1,000 mcg tablet finasteride 1 mg tablet 1.25 mg PO QAM 06/09/20 12/13/21 History fluocinolone acetonide oil 0.01 % 5 drp OTB 2XWK 06/09/20 12/13/21 History ear drops metoprolol succinate 100 mg 50 - 100 mg PO BID 06/09/20 12/13/21 History tablet,extended release 24 hr multivitamin 1 tab PO QAM 06/09/20 12/13/21 History cilostazol 100 mg tablet 100 mg PO BID 06/21/20 12/13/21 History aspirin 81 mg tablet,delayed 81 mg PO BID 06/07/21 12/13/21 History release glucosamine sulf dipot 1 cap PO QPM 06/07/21 12/13/21 History chlr,msm,chond 550 mg-C 30 mg-michelle 1 mg capsule (Glucosamine Chondroitin) acetaminophen 500 mg tablet 1,000 mg PO UD PRN 11/15/21 12/13/21 History (Tylenol Extra Strength) Patient History Medical History (Updated 12/13/21 @ 12:09 by THEE Olmos) A-fib Isolated post-op event. Per cardio 06/2021, no indication for AC. CAD (coronary artery disease) s/p CABG x4 (06/2019) Chronic anemia CKD (chronic kidney disease) stage 3, GFR 30-59 ml/min Diet-controlled diabetes mellitus Hyperlipidemia Hypertension Myocardial Infarction 1988, [address] Reyes Obesity PAD (peripheral artery disease) Arterial insufficiency- on Cilostazol, follows with vascular (Dr. Villar/Uri) Sleep apnea CPAP (compliant) Surgical History History of adenoidectomy History of cardiac cath multiple, most recent 2018 (prior to CABG) History of cataract surgery R/L History of colonoscopy multiple History of coronary artery bypass graft CABG x4 (06/2019)- [facility] History of left knee replacement Left TKA (11/02/20): SAB at L3/L4 x1 attempt + PNB at [facility] History of tonsillectomy Social History Smoking Status: Former smoker Smoking End Date: Quit 12+ years ago; Second Hand Exposure: No; Do You Dip or Chew Tobacco: No; Hx Alcohol Use: Yes Alcohol type: beer Hx Substance Use: No Preferred Language: Venezuelan Communication Ability: Effective Veterinarian Small Animal Required: No Beliefs That Will Affect Care: None marital status: Current Living Situation: Spouse Other Information That Helps Us Care for You: No Feels Safe at Home: Yes Assistive Devices: Glasses Assistive Devices Comment: READING GLASSES Review of Systems Review of Systems: REVIEW OF SYSTEMS: Constitutional: No fever, sweats or chills Eyes: No diplopia, no worsening or blurred vision ENT: normal hearing, no trouble swallowing Respiratory: No cough, sputum, dyspnea at rest or on exertion Cardiovascular: No chest pain, tightness or palpitations Abdomen: No pain, nausea, vomiting, diarrhea or constipation Musculoskeletal: (+) knee joint pain, NO calf pain, swelling Neurologic: No weakness, numbness/tingling, or balance problems Psychiatric: No anxiety or depression Skin: No rash or itch Physical Exam Physical Exam: PHYSICAL EXAM: General: briskly awake and alert, no apparent distress Head: Normocephalic, atraumatic ENT: PERRLA, EOMI, no pharyngeal exudate, mucous membranes moist Neuro: AAO x 3, speech clear and appropriate, strength intact bilaterally 5/5, sensation intact and equal all extremities and dermatomes, no pronator drift Chest: equal rise and fall of the chest, no accessory muscle use, no heaves or thrills, Clear to auscultation, on room air, Cardiac: Regular rate and rhythm, S1S2, skin warm dry, cap refill <3 seconds, peripheral pulses +2 no JVD, no murmur, no edema GI: NABS x 4 quadrants, soft, nontender to palpation, no rebound, guarding or tenderness : awaiting void postoperatively Extremities: right knee with alison wrap, thigh high SCD and ice- present with Hemovac drain with small amount of serous sang drainage Psych: Normal mood and affect Skin: no rash or erythema Results & Data Results & Data ([facility]) Vital Signs (Past 12 Hours) Vital Signs Temp Pulse Pulse Resp BP BP Pulse Ox 12/13/21 11:30 36.4 C L 84 18 145/82 H 93 12/13/21 11:00 36.3 C L 80 16 134/75 96 12/13/21 10:50 79 19 126/67 93 12/13/21 10:35 79 19 129/64 92 12/13/21 10:20 76 14 129/72 94 12/13/21 10:05 36.3 C L 75 24 136/76 94 12/13/21 09:55 78 14 134/75 95 12/13/21 09:45 80 15 117/77 93 12/13/21 09:35 80 16 116/68 99 12/13/21 09:29 36.3 C L 86 20 121/65 95 12/13/21 05:33 37 C 84 20 140/86 95 Laboratory Results Glucose reviewed Medications Administered Home Medications Lactobacillus acidophilus 1.5 mg (250 million cell) capsule (Probiotic Acidophilus) 1,000 mmu cells PO QAM 06/09/20 [History Confirmed 12/13/21] amlodipine 5 mg tablet 10 mg PO QAM 06/09/20 [History Confirmed 12/13/21] ascorbic acid (vitamin C) 500 mg tablet (Vitamin C) 500 mg PO QAM 06/09/20 [History Confirmed 12/13/21] atorvastatin 80 mg tablet 80 mg PO PM 06/09/20 [History Confirmed 12/13/21] cholecalciferol (vitamin D3) 125 mcg (5,000 unit) tablet (Vitamin D3) 125 mcg PO QAM 06/09/20 [History Confirmed 12/13/21] cyanocobalamin (vitamin B-12) 1,000 mcg tablet 1,000 mcg PO QAM 06/09/20 [History Confirmed 12/13/21] finasteride 1 mg tablet 1.25 mg PO QAM 06/09/20 [History Confirmed 12/13/21] fluocinolone acetonide oil 0.01 % ear drops 5 drp OTB 2XWK 06/09/20 [History Confirmed 12/13/21] metoprolol succinate 100 mg tablet,extended release 24 hr 50 - 100 mg PO BID 06/09/20 [History Confirmed 12/13/21] multivitamin 1 tab PO QAM 06/09/20 [History Confirmed 12/13/21] cilostazol 100 mg tablet 100 mg PO BID 06/21/20 [History Confirmed 12/13/21] aspirin 81 mg tablet,delayed release 81 mg PO BID 06/07/21 [History Confirmed 12/13/21] glucosamine sulf dipot chlr,msm,chond 550 mg-C 30 mg-michelle 1 mg capsule (Glucosamine Chondroitin) 1 cap PO QPM 06/07/21 [History Confirmed 12/13/21] acetaminophen 500 mg tablet (Tylenol Extra Strength) 1,000 mg PO UD PRN 11/15/21 [History Confirmed 12/13/21] Active Medications Acetaminophen (Acetaminophen 500 Mg Tab) 1,000 mg PO Q8 MIKE Stop: 01/12/22 13:59 Amlodipine Besylate (Amlodipine Besylate 5 Mg Tab) 10 mg PO QAM MIKE Stop: 01/13/22 08:59 Ascorbic Acid (Ascorbic Acid 500 Mg Tab) 500 mg PO QAM MIKE Stop: 01/13/22 08:59 Aspirin (Aspirin 81 Mg Ectab) 81 mg PO BID MIKE Stop: 01/12/22 20:59 Atorvastatin Calcium (Atorvastatin 40 Mg Tab) 80 mg PO PM MIKE Stop: 01/12/22 20:59 Bisacodyl (Bisacodyl 10 Mg Supp) 10 mg SC DAILY PRN PRN Reason: Constipation Stop: 01/12/22 10:58 Cilostazol (Cilostazol 100 Mg Tab) 100 mg PO BID [facility] Stop: 01/13/22 08:59 Cyanocobalamin (Cyanocobalamin (B-12) 500 Mcg Tablet) 1,000 mcg PO QAM [facility] Stop: 01/13/22 08:59 Docusate Sodium (Docusate Sodium 100 Mg Cap) 100 mg PO BID [facility] Stop: 01/12/22 20:59 Finasteride (Finasteride 5 Mg Tab) 1.25 mg PO QAM [facility] Stop: 01/13/22 08:59 Hydromorphone HCl (Hydromorphone Inj 0.5 Mg/0.5 Ml Syr) 0.5 mg IV Q4H PRN PRN Reason: Pain or Pre PT Stop: 12/27/21 10:58 Sodium Chloride (Nss 1000ml) 1,000 mls @ 100 mls/hr IV .Q10H [facility] Stop: 12/14/21 06:00 Last Admin: 12/13/21 11:37 Dose: 100 mls/hr Documented by: Cefazolin Sodium (Ancef 2000mg) 2,000 mg in 15 mls @ 3.75 mls/min IV Q8H [facility]; Protocol Stop: 12/14/21 00:03 Lactobacillus Acidophilus (Advanced Probiotic 1250 Mg Capsule) 2 cap PO QAM [facility] Stop: 01/13/22 08:59 Magnesium Hydroxide (Magnesium Hydroxide Susp 30 Ml Udc) 30 ml PO Q6H PRN PRN Reason: Constipation Stop: 01/12/22 10:58 Metoclopramide HCl (Metoclopramide Hcl Inj 5 Mg/Ml 2 Ml Vial) 10 mg IV Q6H PRN PRN Reason: Nausea And Vomiting Stop: 01/12/22 10:58 Metoprolol Succinate (Metoprolol Succ 50mg Ext Rel Tab) 50 mg PO PM [facility] Stop: 01/12/22 20:59 Metoprolol Succinate (Metoprolol Succ 50mg Ext Rel Tab) 100 mg PO QAM [facility] Stop: 01/13/22 08:59 Miscellaneous (*Fluocinolone Acetonide Oil 0.01 %Order Awaiting Action) 1 ea N/A QS [facility] Stop: 01/12/22 15:59 Multivitamins (Multivitamin Tab) 1 tab PO QAM [facility] Stop: 01/13/22 08:59 Naloxone HCl (Naloxone Hcl 0.4 Mg/1 Ml Vial/Carp) 0.1 mg IV Q5M PRN PRN Reason: Oversedation/Resp Depression Stop: 01/12/22 10:58 Ondansetron HCl (Ondansetron Inj 2 Mg/Ml 2 Ml Vial) 4 mg IV Q6H PRN PRN Reason: Nausea And Vomiting Stop: 01/12/22 10:58 Oxycodone HCl (Oxycodone Hcl Ir 5 Mg Tab (Immediate Release)) 5 - 10 mg PO Q4H PRN PRN Reason: Pain or Pre PT Stop: 12/27/21 10:58 Sennosides (Senna 8.6 Mg Tab) 17.2 mg PO HS [facility] Stop: 01/12/22 20:59 Tamsulosin HCl (Tamsulosin Hcl 0.4 Mg Cap) 0.4 mg PO QAM PRN PRN Reason: UNABLE to void Stop: 01/12/22 10:58 Vitamin D (Cholecalciferol 5,000 Units 125 Mcg Tab) 5,000 units PO QAM [facility] Stop: 01/13/22 08:59 ECG Additional Comments: none recent for review PG Care Time/CCT Total # of Minutes Spent Total Time Spent with Patient: Total time spent is greater than 50% in coordination of care (as documented) at patient's floor/unit and/or counseling patient: Coding Level of Care Code 21580 Office/OBS Consult Lvl 3 Diagnoses Primary osteoarthritis of right knee M17.11 PAD (peripheral artery disease) I73.9 Obesity E66.9 Hyperlipidemia E78.5 CAD (coronary artery disease) I25.10 BPH (benign prostatic hyperplasia) N40.0 Sleep apnea G47.30 Hyperglycemia R73.9
[2021-12-13] MEDS: ACETAMINOPHEN 500 MG TAB PO SCH ×2 (13:02→21:09)
--- NOTE | 2021-12-13 13:39 | Anesthesiology Progress Note ---
Date of Service December 13, 2021 Anesthesia Post Procedure Vital Signs Vital Signs: Temp Pulse Pulse Resp BP BP Pulse Ox 12/13/21 13:01 36.5 C 88 18 134/75 93 12/13/21 12:00 36.3 C L 83 18 128/74 95 12/13/21 11:30 36.4 C L 84 18 145/82 H 93 12/13/21 11:00 36.3 C L 80 16 134/75 96 12/13/21 10:50 79 19 126/67 93 12/13/21 10:35 79 19 129/64 92 12/13/21 10:20 76 14 129/72 94 12/13/21 10:05 36.3 C L 75 24 136/76 94 12/13/21 09:55 78 14 134/75 95 12/13/21 09:45 80 15 117/77 93 12/13/21 09:35 80 16 116/68 99 12/13/21 09:29 36.3 C L 86 20 121/65 95 12/13/21 05:33 37 C 84 20 140/86 95 Pain Intensity Right Knee: Pain Intensity: 0 Transfer of Care Handoff Completed per policy Notes Mental Status: alert / awake / arousable and participated in evaluation Patient Amnestic to Procedure: Yes Nausea / Vomiting: adequately controlled Pain: adequately controlled Airway Patency, RR, SpO2: stable & adequate BP & HR: stable & adequate Hydration State: stable & adequate Neuraxial Anesthesia: was administered and sensory block is resolving Anesthetic Complications: no major complications apparent
[2021-12-13] MEDS: ceFAZolin 2000MG 2,000 MG/15 ML SYR IV SCH (15:40)
[2021-12-13] MEDS ORDERED: GLUCAGON FOR INJ 1 MG VIAL SQ PRN (19:24)
[2021-12-13] MEDS ORDERED: CARBOHYDRATES FOR HYPOGLYCEMIA PO PRN (19:24)
[2021-12-13] MEDS ORDERED: DEXTROSE 50% 50 ML SYRINGE IV PRN (19:24)
[2021-12-13] MEDS ORDERED: GLUCOSE 40% GEL 15 GM TUBE PO PRN (19:24)
[2021-12-13] MEDS ORDERED: GLUCOSE 10 TABS/TUBE PO PRN (19:24)
[2021-12-13] MEDS: ASPIRIN 81 MG ECTAB PO SCH (20:25)
[2021-12-13] MEDS: DOCUSATE SODIUM 100 MG CAP PO SCH (20:54)
[2021-12-13] MEDS ORDERED: cilostazoL 100 MG TAB PO SCH (21:00)
[2021-12-13] MEDS ORDERED: METOPROLOL SUCC 50MG EXT REL TAB PO SCH (21:00)
[2021-12-13] MEDS ORDERED: NON-FORMULARY MEDICATION (Glucos Sul 2kcl-Msm-Chond-C-Mn [Glucosamine Chondroitin] 550-30- PO SCH (21:00)
[2021-12-13] MEDS ORDERED: ATORVASTATIN 40 MG TAB PO SCH (21:00)
[2021-12-13] MEDS ORDERED: SENNA 8.6 MG TAB PO SCH (21:00)
[2021-12-13] MEDS: INSULIN ASPART PER UNIT SC SCH (21:08)
[2021-12-14] MEDS: ceFAZolin 2000MG 2,000 MG/15 ML SYR IV SCH (00:01)
[2021-12-14] MEDS: ACETAMINOPHEN 500 MG TAB PO SCH (05:20)
[2021-12-14 06:45] LABS: Hematocrit (blood only) 32.6 % (42-52); Hemoglobin 10.6 g/dL (14.0-18.0); Mean Corpuscular Hemoglobin 29.6 pg (25-34); Mean Corpuscular Hgb Conc 32.5 g/dL (32-36); Mean Corpuscular Volume 91.1 fL (80-100); Mean Platelet Volume 8.2 fL (7.4-10.4); Platelet Count 297 K/uL (130-400); RDW Coefficient of Variation 14.6 % (11.5-14.5); RDW Standard Deviation 47.9 fL (36.4-46.3); Red Blood Count 3.58 M/uL (4.7-6.1); White Blood Count 12.83 K/uL (4.8-10.8)
[2021-12-14 07:12] LABS: BUN Creatinine Ratio 21.9 (10-20); Calcium 8.7 mg/dl (8.5-10.1); Creatinine Clr Calc Pharmacy 74.9 ml/min; Est GFR (African American) 72.5 ml/min; Est GFR (Non-African American) 62.6 ml/min; Potassium 4.2 mmol/L (3.5-5.1)
--- NOTE | 2021-12-14 07:52 | Orthopedic Progress Note ---
Date of Service December 14, 2021 Assessment & Plan (1) Primary osteoarthritis of right knee: Plan: Postop day 1 right total knee arthroplasty -PT/OT -Pain management as written -DVT prophylaxis: SCDs, teds, aspirin 81 mg twice daily -AM labs: Hemoglobin at 10.6 from 11.6 preop. He has mild leukocytosis likely reactive. He is asymptomatic. -Hemovac drain had pulled out overnight and was discontinued and removed by myself this morning. -Discharge planning: Plan on home with outpatient therapy. Plan on discharge home likely today as long as therapy goes well. Admission and Anticipated Discharge Date Admission Date: December 13, 2021 Subjective Postop day 1 right total knee. Patient is doing very well this morning. He has minimal pain. He has no other complaints. Denies chest pain, shortness of breath, fever/chills, headache/dizziness, nausea/vomiting/diarrhea. Review of Systems Review of Systems: All systems reviewed & are unremarkable except as noted in Subjective Physical Exam Physical Exam: Right knee: No calf tenderness. Good dorsiflexion. Toes are mobile. Distally neurovascular status and sensation is intact. Overnight patient's dressing had slid down and Hemovac was leaking. One of his Hemovac tubes had pulled out. Servando wrap was removed and Hemovac discontinued. Dressing applied to Hemovac site. Mustapha dressing clean, dry, intact and functioning. Results & Data ([facility]) Vital Signs (Past 12 Hours) Vital Signs Temp Pulse Pulse Resp BP BP Pulse Ox 12/14/21 07:28 36.3 C L 67 18 141/78 H 96 12/14/21 00:00 81 13 93 12/13/21 23:15 36.6 C 80 18 154/80 H 93
--- NOTE | 2021-12-14 08:06 | Hospitalist Progress Note ---
Date of Service December 14, 2021 Assessment & Plan (1) Primary osteoarthritis of right knee: Plan: POD # 1 s/p RIGHT TKA with Dr Jacobson. Pre-op h/h 11.6/35.5 H/h--> 10.6/32.6, acute blood loss anemia from surgery and dilutional from IVF --> Last year during LEFT TKA, I did check iron studies which were low and rec'd oral replacement (iron was 29, trans sat 10%, ferritin 24.6). Will repeat and have to inquire about follow up EGD, given venofer x 1 and f/u PCP as previously done. Repeat values improved from prior PT/OT/pain control/bowel regimen per primary service (2) PAD (peripheral artery disease): Plan: Asa and Pletal --> ASA resumed evening 12/13, pletal to start 12/14 (3) Obesity: Plan: Continue with weight loss efforts following surgical recovery (4) Hyperlipidemia: Plan: Continue atorvastatin 80mg PO daily (5) CAD (coronary artery disease): Plan: CAD with CABG x4- stable symptoms- cardiology note reviewed from Jul 02 - Continue with BB -- takes metoprolol 100mg AM, 50mg PM. Given 100mg last yesterday as missed AM dose Continue asa, statin (6) BPH (benign prostatic hyperplasia): Plan: Symptoms controlled- continue with finasteride UOP inaccurate with unmeasured voids (7) Sleep apnea: Plan: CPAP 15cm H20 - Wear while napping and at night while receiving sedating medications/narcotics (8) Hyperglycemia: Plan: A1c 6.7, technically DM (last year was 6.8) BSG ACHS, insulin added , likely due to steroids from surgery -- has only required 1 total unit thus far BSGs acceptable Follow up PCP/consideration to start metformin vs diet/exercise as he now has b/l knee replacements and ambulating better Plan: Plans for d/c per orthopedics service, did well with therapy/ Admission and Anticipated Discharge Date Admission Date: December 13, 2021 Supervising Physician Co-Signing Physician Notes PA Supervision Note: I did not personally see or examine the patient today, but I verified all todd points of KRISTYN Durant's assessment and plan with the following exceptions/additions: None Subjective patient evaluated this morning doing well pain controlled, no pain at rest, only 2-3 when up walking worked with therapy, planning for d/c later today. had f/u with PCP regarding anemia and they are monitoring. up to date on c-scope but never had EGD. No upper GI discomfort or reflux reported. no fever/chills, chest pain, shortness of breath, abd pain, nausea vomiting or dysuria. Review of Systems Review of Systems: All systems reviewed & are unremarkable except as noted in HPI & below Physical Exam Physical Exam: PHYSICAL EXAM: General: WD/WN obese male sitting up in chair, no acute distress HEENT: head normocephalic, atraumatic, mmm, trachea midline without deviation Resp: CTAB, no w/c/r, on room air CV: RRR, no m/r/g, expected edema post-op extremity, pulses palpable, cap refill acceptable GI: +BS, soft, non-tender : no arredondo MSK/Neuro: knee wrap to R knee with alison/hemovac draining, NVI, toes mobile, prior incision to L knee from prior TKA well healed Psych: AOX3 , cooperative and calm Skin: warm, dry Results & Data Results & Data ([facility]) Vital Signs (Past 12 Hours) Vital Signs Temp Pulse Pulse Resp BP BP Pulse Ox 12/14/21 07:28 36.3 C L 67 18 141/78 H 96 12/14/21 00:00 81 13 93 12/13/21 23:15 36.6 C 80 18 154/80 H 93 Laboratory Results 12/14/21 12/14/21 12/13/21 Range/Units 06:18 06:18 21:00 WBC 12.83 H (4.8-10.8) K/uL RBC 3.58 L (4.7-6.1) M/uL Hgb 10.6 L (14.0-18.0) g/dL Hct 32.6 L (42-52) % MCV 91.1 (80-100) fL MCH 29.6 (25-34) pg MCHC 32.5 (32-36) g/dL RDW Std Deviation 47.9 H (36.4-46.3) fL RDW Coeff of Alexi 14.6 H (11.5-14.5) % Plt Count 297 (130-400) K/uL MPV 8.2 (7.4-10.4) fL Sodium 137 (136-145) mmol/L Potassium 4.2 (3.5-5.1) mmol/L Chloride 105 (98-107) mmol/L Carbon Dioxide 25 (21-32) mmol/L Anion Gap 7 (3-11) BUN 25 H (6-23) mg/dl Creatinine 1.14 (0.6-1.4) mg/dl Est Cr Clr Drug Dosing 74.9 ml/min Est GFR ( Amer) 72.5 ml/min Est GFR (Non-Af Amer) 62.6 ml/min BUN/Creatinine Ratio 21.9 H (10-20) Glucose 126 H (70-99(Fasting)) mg/dl POC Glucose 178 H (70-99) mg/dl Calcium 8.7 (8.5-10.1) mg/dl 12/13/21 Range/Units 18:54 WBC (4.8-10.8) K/uL RBC (4.7-6.1) M/uL Hgb (14.0-18.0) g/dL Hct (42-52) % MCV (80-100) fL MCH (25-34) pg MCHC (32-36) g/dL RDW Std Deviation (36.4-46.3) fL RDW Coeff of Alexi (11.5-14.5) % Plt Count (130-400) K/uL MPV (7.4-10.4) fL Sodium (136-145) mmol/L Potassium (3.5-5.1) mmol/L Chloride (98-107) mmol/L Carbon Dioxide (21-32) mmol/L Anion Gap (3-11) BUN (6-23) mg/dl Creatinine (0.6-1.4) mg/dl Est Cr Clr Drug Dosing ml/min Est GFR ( Amer) ml/min Est GFR (Non-Af Amer) ml/min BUN/Creatinine Ratio (10-20) Glucose (70-99(Fasting)) mg/dl POC Glucose 182 H (70-99) mg/dl Calcium (8.5-10.1) mg/dl PG Care Time/CCT Total # of Minutes Spent Total Time Spent with Patient: Total time spent is greater than 50% in coordination of care (as documented) at patient's floor/unit and/or counseling patient: Coding Level of Care Code 46040 Subseq Obs Care Lvl 2 Diagnoses Primary osteoarthritis of right knee M17.11 PAD (peripheral artery disease) I73.9 Obesity E66.9 Hyperlipidemia E78.5 CAD (coronary artery disease) I25.10 BPH (benign prostatic hyperplasia) N40.0 Sleep apnea G47.30 Hyperglycemia R73.9
[2021-12-14] MEDS: INSULIN ASPART PER UNIT SC SCH ×2 (08:49→12:17)
[2021-12-14] MEDS: DOCUSATE SODIUM 100 MG CAP PO SCH (08:50)
[2021-12-14] MEDS: ASPIRIN 81 MG ECTAB PO SCH (08:50)
[2021-12-14 08:53] LABS: Iron 40 mcg/dl (35-175); Total Iron Binding Cap Calc 321 mcg/dl (250-450); Transferrin (FE) Percent Satur 12 % (20-50); Unsaturated Iron Binding Cap 281 mcg/dl (155-355)
[2021-12-14] MEDS ORDERED: ADVANCED PROBIOTIC 1250 MG CAPSULE PO SCH (09:00)
[2021-12-14] MEDS ORDERED: METOPROLOL SUCC 50MG EXT REL TAB PO SCH (09:00)
[2021-12-14] MEDS ORDERED: CHOLECALCIFEROL 5,000 UNITS 125 MCG TAB PO SCH (09:00)
[2021-12-14] MEDS ORDERED: CYANOCOBALAMIN (B-12) 500 MCG TABLET PO SCH (09:00)
[2021-12-14] MEDS ORDERED: NON-FORMULARY MEDICATION (Multivitamin Tablet) PO SCH (09:00)
[2021-12-14] MEDS ORDERED: amLODIPine BESYLATE 5 MG TAB PO SCH (09:00)
[2021-12-14] MEDS ORDERED: cilostazoL 100 MG TAB PO SCH (09:00)
[2021-12-14] MEDS ORDERED: FINASTERIDE 5 MG TAB PO SCH (09:00)
[2021-12-14] MEDS ORDERED: ASCORBIC ACID 500 MG TAB PO SCH (09:00)
[2021-12-14] MEDS ORDERED: MULTIVITAMIN TAB PO SCH (09:00)
[2021-12-14] MEDS ORDERED: IRON SUCROSE 200 MG in 0.9 % SODIUM CHLORIDE 100 ML IV ONE (09:45)
--- NOTE | 2021-12-16 08:45 | Discharge Summary ---
Date of Service December 16, 2021 Admission HPI Per Admitting Provider 76 year old male with PMHx significant for hx of [place], CAD s/p quadruple bypass, PAD, HTN, high cholesterol, DEE, DM2 diet controlled who presents with ongoing right knee pain. Pain interfering with his daily activities. He has failed conservative measures including injections and antiinflammatories. He would like to proceed with left knee replacement. Patient denies headaches, sweats, fevers, chills, double vision, blurred vision, cough, sore throat, dysphagia, chest pain, sob, wheezing, n/v/d/c, numbness, tingling, fatigue, urinary symptoms, mood disorders. ROS positive for right knee pain and stiffness. Admission Exam Per Admitting Provider Constitutional: well developed and well nourished; no acute distress Eyes: PERRL, conjunctivae normal, anicteric sclerae ENMT: external ear and nose normal, oropharynx normal Neck: trachea midline, no thyromegaly Respiratory: normal respiratory effort, lungs clear to auscultation Cardiovascular: RRR, no murmur, no edema Musculoskeletal: Right Knee: ROM 0-130 degrees with crepitation. Varus alignment. Tenderness medial joint line. Stable to valgus and varus stress. Po sitive Chayo's Skin: no rashes, warm and dry Neurologic: patellar DTR's 2+ bilat, sensation intact Psychiatric: A+Ox3, euthymic affect Principal Diagnosis Right knee osteoarthritis Discharge Exam Right knee: No calf tenderness. Good dorsiflexion. Toes are mobile. Distally neurovascular status and sensation is intact. Overnight patient's dressing had slid down and Hemovac was leaking. One of his Hemovac tubes had pulled out. Servando wrap was removed and Hemovac discontinued. Dressing applied to Hemovac site. Mustapha dressing clean, dry, intact and functioning. Constitutional well developed and well nourished; no acute distress Discharge Data Allergies Allergy/AdvReac Type Severity Reaction Status Date / Time No Known Allergies Allergy Verified 12/13/21 05:38 Consultations 12/08/21 17:20 Consult Hospitalist Routine Procedures Performed Operation Date: 12/13/21 07:00 Actual Procedures p Right Total Knee Arthroplasty(Right) - Jayce Aguilar MD Ordered Studies 12/13/21 05:00 US - OR guided needle placemen Routine Hospital Course (1) Primary osteoarthritis of right knee: Patient presented for same day admission following right total knee arthroplasty on 12/13/2021. He tolerated procedure well. The Patient had an uneventful hospital course. Post-operatively, his activity was progressed and well tolerated. They participated in PT with ambulation distance of 275 feet. ROM of operative knee reached 90 degrees. Labs remained stable- lowest hemoglobin recorded: 10. 6. [facility] hospitalist service was consulted for medical management during admission. Pain controlled on oral medications. Please refer to daily progress notes and PT notes for complete details. After exam on 12/14/2021, patient was felt to be stable for discharge home with plans on attending outpatient PT. Patient will f/u in the office in about 2 weeks for further evaluation including x-rays and incision check, sooner if having any issues or concerns. Postop day 1 right total knee arthroplasty -PT/OT -Pain management as written -DVT prophylaxis: SCDs, teds, aspirin 81 mg twice daily -AM labs: Hemoglobin at 10.6 from 11.6 preop. He has mild leukocytosis likely reactive. He is asymptomatic. -Hemovac drain had pulled out overnight and was discontinued and removed by myself this morning. -Discharge planning: Plan on home with outpatient therapy. Plan on discharge home likely today as long as therapy goes well. Lab Results 12/13/21 12/13/21 12/13/21 Range/Units 05:27 05:28 18:54 WBC (4.8-10.8) K/uL RBC (4.7-6.1) M/uL Hgb (14.0-18.0) g/dL Hct (42-52) % MCV (80-100) fL MCH (25-34) pg MCHC (32-36) g/dL RDW Std Deviation (36.4-46.3) fL RDW Coeff of Alexi (11.5-14.5) % Plt Count (130-400) K/uL MPV (7.4-10.4) fL Sodium (136-145) mmol/L Potassium (3.5-5.1) mmol/L Chloride (98-107) mmol/L Carbon Dioxide (21-32) mmol/L Anion Gap (3-11) BUN (6-23) mg/dl Creatinine (0.6-1.4) mg/dl Est Cr Clr Drug Dosing ml/min Est GFR ( Amer) ml/min Est GFR (Non-Af Amer) ml/min BUN/Creatinine Ratio (10-20) Glucose (70-99(Fasting)) mg/dl POC Glucose 112 H 182 H (70-99) mg/dl Calcium (8.5-10.1) mg/dl Iron (35-175) mcg/dl TIBC (250-450) mcg/dl Unsaturated IBC (155-355) mcg/dl Transferrin % Sat (20-50) % SARS-CoV-2, RNA, NAAT NEGATIVE (NEGATIVE) 12/13/21 12/14/21 12/14/21 Range/Units 21:00 06:18 06:18 WBC 12.83 H (4.8-10.8) K/uL RBC 3.58 L (4.7-6.1) M/uL Hgb 10.6 L (14.0-18.0) g/dL Hct 32.6 L (42-52) % MCV 91.1 (80-100) fL MCH 29.6 (25-34) pg MCHC 32.5 (32-36) g/dL RDW Std Deviation 47.9 H (36.4-46.3) fL RDW Coeff of Alexi 14.6 H (11.5-14.5) % Plt Count 297 (130-400) K/uL MPV 8.2 (7.4-10.4) fL Sodium 137 (136-145) mmol/L Potassium 4.2 (3.5-5.1) mmol/L Chloride 105 (98-107) mmol/L Carbon Dioxide 25 (21-32) mmol/L Anion Gap 7 (3-11) BUN 25 H (6-23) mg/dl Creatinine 1.14 (0.6-1.4) mg/dl Est Cr Clr Drug Dosing 74.9 ml/min Est GFR ( Amer) 72.5 ml/min Est GFR (Non-Af Amer) 62.6 ml/min BUN/Creatinine Ratio 21.9 H (10-20) Glucose 126 H (70-99(Fasting)) mg/dl POC Glucose 178 H (70-99) mg/dl Calcium 8.7 (8.5-10.1) mg/dl Iron (35-175) mcg/dl TIBC (250-450) mcg/dl Unsaturated IBC (155-355) mcg/dl Transferrin % Sat (20-50) % SARS-CoV-2, RNA, NAAT (NEGATIVE) 12/14/21 12/14/21 12/14/21 Range/Units 06:18 08:44 12:09 WBC (4.8-10.8) K/uL RBC (4.7-6.1) M/uL Hgb (14.0-18.0) g/dL Hct (42-52) % MCV (80-100) fL MCH (25-34) pg MCHC (32-36) g/dL RDW Std Deviation (36.4-46.3) fL RDW Coeff of Alexi (11.5-14.5) % Plt Count (130-400) K/uL MPV (7.4-10.4) fL Sodium (136-145) mmol/L Potassium (3.5-5.1) mmol/L Chloride (98-107) mmol/L Carbon Dioxide (21-32) mmol/L Anion Gap (3-11) BUN (6-23) mg/dl Creatinine (0.6-1.4) mg/dl Est Cr Clr Drug Dosing ml/min Est GFR ( Amer) ml/min Est GFR (Non-Af Amer) ml/min BUN/Creatinine Ratio (10-20) Glucose (70-99(Fasting)) mg/dl POC Glucose 121 H 110 H (70-99) mg/dl Calcium (8.5-10.1) mg/dl Iron 40 (35-175) mcg/dl TIBC 321 (250-450) mcg/dl Unsaturated IBC 281 (155-355) mcg/dl Transferrin % Sat 12 L (20-50) % SARS-CoV-2, RNA, NAAT (NEGATIVE) Total Time Total Time Spent Total Time Spent (In Minutes): 20 Discharge Plan Discharge Items Patient Disposition: Home - Self-Care Reason For Visit: Right Knee Osteoarthritis Discharge Diagnosis: Right knee osteoarthritis Activity: Per Instructions section Non-emergency contact: Surgeon Call non-emergency contact if: you have any medication questions, your pain is not controlled, your pain is concerning for you, you have a fever, your temperature is above 101, your wound has increased redness and your wound has increased drainage Follow-up/Referrals: Ward Sapp, [Primary Care Provider] - Diet: Regular Addtl Attending Provider Instructions: ACTIVITY RECOMMENDATIONS: SELF CARE INSTRUCTIONS AFTER TOTAL KNEE REPLACEMENT A. You may need to continue a physical therapy program after discharge from the hospital. There are several options available to you. Your doctor will assist you in selecting the best one for you. 1. An out-patient facility 2 to 3 times a week for therapy or home therapy. 2. Continue working on all exercises taught to you in the hospital. Your goals should be to increase bending of your knee to 90 degrees and beyond and to fully straighten your knee. B. You may progress at your own pace from walking with a walker or crutches to a cane; then to no assistive devices. C. Make walking a part of your daily routine. Be up as much as comfortable with rest periods throughout the day. Rest with leg elevation is very important. Use the ice wrap frequently for the first 3-4 weeks. D. There are no restrictions on activities. You may ride in a car, shop, participate in processing assistant and all social activities. E. Wear the long elastic stockings (CASIMIRO hose) 20 hours a day for 2 weeks after surgery. They can be removed several times a day for laundering and for a bath. F. You may shower, no tub baths until cleared by your doctor. SPECIAL CARE INSTRUCTIONS: VERY IMPORTANT TO READ AND REVIEW A. There are a few signs you need to watch for after you are home. Call [facility] if you notice any of the followin. Increased severe knee pain. Some pain is expected especially when you exercise. 2. Increased swelling in your leg or knee; pain or swelling of the calf muscle in either lower leg. 3. Any fluid drainage from the incision. 4. Shortness of breath or chest pain. B. Please call [facility] [place] at if you have any concerns or questions about your operation or recovery. The doctor or his nurse will return your call promptly. C. You must take antibiotics before dental work, bladder, bowel or other surgery. Your doctor will provide you with a permanent care to carry describing this precaution. IMPORTANT: * REMEMBER TO TAKE ASPIRIN, 81 MG, TWICE DAILY FOR 4 WEEKS UNLESS OTHERWISE DIRECTED. THIS IS YOUR BLOOD THINNER. * HIGH RISK PATIENTS MAY BE PRESCRIBED A STRONGER BLOOD THINNER. THIS WILL BE PROVIDED AT DISCHARGE. * CALL IF INCREASED PAIN, REDNESS, DRAINAGE OR FEVER GREATER THAT 101. * WEAR CASIMIRO HOSE 20 HOURS PER DAY FOR 2 WEEKS. This is a large suction dressing covering your incision. This will help pull any excess drainage from the wound and allow your incision to heal properly. You may shower with this if you can keep the unit outside of the shower. If any bleeding or leakage is noted please call your doctor's office. This will remain on your incision for 7 days and then should be removed. This can be done yourself or by the home nursing staff if applicable. The entire unit is disposable once removed. Once removed, keep incision clean and dry. If redness or drainage is noted, please call your surgeon. IF INCISION IS LEAKING THROUGH DRESSING, CALL THE OFFICE . FOLLOW UP VISIT: If appointment is not already scheduled: Please call [facility] to make a follow-up appointment for 2 weeks after your surgery at . Pending Studies at Discharge: No Stand-Alone Forms: [facility] [place], Smoking Cessation Medications and DC Order Prescriptions: New aspirin 81 mg Tablet,Delayed Release (Dr/Ec) 81 mg PO BID Qty: 60 RF: 0 acetaminophen [Tylenol Extra Strength] 500 mg Tablet 1,000 mg PO Q8 Qty: 60 RF: 0 oxycodone 5 mg Tablet 5 - 10 mg PO .Q4h-6h MDD 6 PRN (Reason: pain) Qty: 30 RF: 0 Continued multivitamin Tablet 1 tab PO QAM RF: 0 atorvastatin 80 mg Tablet 80 mg PO PM RF: 0 metoprolol succinate 100 mg Tablet Extended Release 24 Hr 50 - 100 mg PO BID RF: 0 cyanocobalamin (vitamin B-12) 1,000 mcg Tablet 1,000 mcg PO QAM RF: 0 amlodipine 5 mg Tablet 10 mg PO QAM RF: 0 ascorbic acid (vitamin C) [Vitamin C] 500 mg Tablet 500 mg PO QAM RF: 0 finasteride 1 mg Tablet 1.25 mg PO QAM RF: 0 fluocinolone acetonide oil 0.01 % Drops 5 drp OTB 2XWK RF: 0 cholecalciferol (vitamin D3) [Vitamin D3] 125 mcg (5,000 unit) Tablet 125 mcg PO QAM RF: 0 Probiotic Acidophilus 1.5 mg (250 million cell) Capsule 1,000 mmu cells PO QAM RF: 0 cilostazol 100 mg Tablet 100 mg PO BID RF: 0 Glucosamine Chondroitin 550-30-1 mg Capsule 1 cap PO QPM RF: 0 Discontinued aspirin [Aspir-81] 81 mg Tablet,Delayed Release (Dr/Ec) 81 mg PO BID RF: 0 acetaminophen [Tylenol Extra Strength] 500 mg Tablet 1,000 mg PO UD PRN (Reason: Pain) RF: 0 Discharge Orders: Discharge Order (Routine); Ordered 12/14/21 Ordered By: Albert Herrera Admission Data Admit Date/Time: 12/13/21 09:39 Attending Provider: Jayce Aguilar Admit Provider: Jayce Aguilar Primary Care Provider: Ward Sapp Other Providers: Chanel Lew Other Interventions: Discharge Summary Assessment (RN) Last Done: 12/14/21 11:44
== END 2021-12-14 12:49 | disposition home or self-care (01) ==
LOC: 3N 05:03 → ASU 05:03 → 3N 19:43
DX: G47.30 Sleep apnea, unspecified; Z95.5 Presence of coronary angioplasty implant and graft; Z95.1 Presence of aortocoronary bypass graft; I12.9 Hypertensive chronic kidney disease with stage 1 through stage 4 chronic kidney disease, or unspecified chronic kidney disease; I25.10 Atherosclerotic heart disease of native coronary artery without angina pectoris; N18.30 Chronic kidney disease, stage 3 unspecified; E78.5 Hyperlipidemia, unspecified; Z87.891 Personal history of nicotine dependence; Z79.82 Long term (current) use of aspirin; Z96.652 Presence of left artificial knee joint; M17.11 Unilateral primary osteoarthritis, right knee; Z79.899 Other long term (current) drug therapy; E11.22 Type 2 diabetes mellitus with diabetic chronic kidney disease